=== PATIENT | female | born 1965 | race Caucasian/White ===

== ENCOUNTER 2018-08-16 22:17 | Inpatient (IN) ==
[2018-08-16] MEDS ORDERED: 0.9 % SODIUM CHLORIDE 1,000 ML IV ONE (22:37)
[2018-08-16] MEDS ORDERED: LEVOFLOXACIN 500 MG/100 ML BAG IV ONE (22:39)
[2018-08-16] MEDS ORDERED: VANCOMYCIN 1,000 MG in 0.9 % SODIUM CHLORIDE 250 ML IV ONE (22:39)
--- NOTE | 2018-08-16 22:45 | Emergency Department Note ---
SOB HPI - General Chief Complaint: Shortness of Breath/Dyspnea Stated Complaint: shortness of breath Time Seen by Provider: 08/16/18 22:25 Source: family Mode of arrival: ambulatory Limitations: no limitations - History of Present Illness 53-year-old female with a history of pneumonia comes in for severe hypoxia down to the 70s in triage. Apparently she has been having a cough congestion and trouble breathing since Sunday (5 days). She saw her PCP yesterday was put on minocycline but today she developed hypoxia and severe dyspnea. She does have a history of obstructive sleep apnea but does not wear CPAP. She also has inhalers but denies history of asthma. States normal bowel movement 2 days ago. Has not been eating much. Urinating okay but does have chronic kidney disease due to her type 2 diabetes. Denies chest pain or pressure; denies heart history of CO or failure - Related Data Home Medications Medication Instructions Recorded Confirmed Accu-Check Fastclix Lancets .ROUTE 07/10/17 03/07/18 Pen [place] 32G x 4MM Novafine .ROUTE 07/10/17 03/07/18 screw on albuterol sulfate HFA 90 2 puff INHALATION QID PRN g 07/10/17 08/16/18 mcg/actuation aerosol inhaler blood sugar diagnostic strips See Dose Instructions .ROUTE 07/10/17 03/07/18 .MEDSUPPLY #20 each blood-glucose meter See Dose Instructions .ROUTE 07/10/17 03/07/18 .MEDSUPPLY #1 each insulin degludec 100 unit SUB-Q QDAY ml 07/10/17 05/22/18 unit-liraglutide 3.6 mg/mL(3 mL) subcutaneous pen atorvastatin 20 mg tablet 20 mg PO QDAY 09/25/17 08/16/18 gabapentin 300 mg capsule 300 mg PO TID cap 02/18/18 08/16/18 Benzonatate [Tessalon] 100 mg PO TIDP PRN 08/16/18 08/16/18 Cholecalciferol (Vitamin D3) 2,000 unit PO ONCE 08/16/18 08/16/18 [Vitamin D] Minocycline [Minocin] 100 mg PO BID 08/16/18 08/16/18 Torsemide [Demadex] 40 mg PO ONCE 08/16/18 08/16/18 Previous Rx's Medication Instructions Recorded amlodipine 10 mg tablet 10 mg PO QDAY #90 tab 02/18/18 atenolol 25 mg tablet 25 mg PO QDAY #90 tab 02/18/18 Auto cpap #1 ea 04/17/18 furosemide 40 mg tablet 40 mg PO BID #120 tab 07/25/18 Allergies Allergy/AdvReac Type Severity Reaction Status Date / Time morphine Allergy Unknown Unknown Verified 05/22/18 09:29 Penicillins Allergy Unknown sunburn Verified 05/22/18 09:29 rash amoxicillin-pot clavulanate Allergy Unknown Unknown Uncoded 05/22/18 09:29 er clindamycin hcl Allergy Unknown Unknown Uncoded 05/22/18 09:29 Review of Systems All systems ED: reviewed and negative except as stated. Past Medical History - Past Medical History Attestation: Yes: The following information was validated with the patient. [facility] Narrative: Family History (Last Reviewed 03/07/18 @ 11:09 by Bubba Cortes MD) Mother Hypertension Diabetes Grandmother Cancer Grandfather Hypertension Diabetes Stroke Family/Other Diabetes Medical History (Last Reviewed 03/07/18 @ 11:09 by Bubba Cortes MD) Anemia in stage 3 chronic kidney disease (Chronic) Endometrial cancer (Chronic) Fatigue (Chronic) Dizziness (Chronic) Uterine cancer (Chronic) Erythema nodosum (Chronic) Adenocarcinoma of endometrium (Chronic) Sarcoidosis (Chronic) Heart murmur, aortic (Chronic) Peripheral neuropathy (Chronic) Retinal detachment (Chronic) Hyperlipidemia (Chronic) Cervical cancer (Chronic) Past Surgical History (Last Reviewed 03/07/18 @ 11:09 by Bubba Cortes MD) History of eye surgery (Chronic 11/29/15) History of eye surgery (Chronic ~04/2016) History of left cataract surgery (Chronic) History of tonsillectomy (Chronic) History of total abdominal hysterectomy (Chronic ~1997) Medical history: Reports: cancer (Endometrial cancer), DM (With neurologic complications), hyperlipidemia, hypertension, renal disease (With iron deficiency anemia and nephrotic syndrome), other (Sarcoidosis) Surgical history ED: Reports: cataract, hysterectomy, tonsillectomy, other (Retinal surgery) - Social History smoking status: Never smoker Physical Exam Overweight female some respiratory distress requiring nasal cannula oxygen now. Normocephalic atraumatic. Conjunctive are clear sclerae nonicteric. No nasal discharge but some audible congestion. Occasional productive cough. Oropharynx with dry buccal mucosa. Neck is supple without lymphadenopathy thyromegaly or carotid bruit. Heart is mildly tachycardic. Lungs with end expiratory wheezes rales and few scattered rhonchi in all zacarias. Wheezes are more apparent in the upper rales more in the lower. Abdomen is soft mildly diffusely tender. Trace pedal edema bilaterally. She is able to move herself around the bed with modes t assistance. She is alert oriented able to answer questions however appears fatigued Limitations: no limitations Course Vital Signs Temperature 97.2 F 08/16/18 22:18 Pulse Rate 78 08/16/18 22:18 Respiratory Rate 19 08/16/18 22:18 Blood Pressure 162/70 08/16/18 22:18 Pulse Oximetry (%) 96 08/16/18 22:18 Temperature 97.2 F 08/16/18 22:18 Pulse Rate 78 08/16/18 22:18 Respiratory Rate 19 08/16/18 22:18 Blood Pressure 162/70 08/16/18 22:18 Pulse Oximetry (%) 96 08/16/18 22:18 Shortness of Breath/Dyspnea - Lab Data Lab results reviewed: Yes I reviewed the patient's lab results. Result diagrams: 08/16/18 22:45 08/16/18 22:45 Lab Results 08/16/18 08/16/18 08/16/18 Range/Units 22:45 22:45 22:45 WBC 7.9 (4.5-11.0) K/mcL RBC 3.64 L (4.00-5.20) M/mcL Hgb 9.8 L (12.0-15.0) g/dL Hct 29.6 L (36.0-48.0) % POC Hct 28.0 L (36.0-48.0) % MCV 81.5 (80.0-100.0) fL MCH 27.0 (26.0-34.0) pg MCHC 33.1 (31.0-36.0) g/dL RDW 14.9 H (11.5-14.5) % Plt Count 167 (140-440) K/mcL MPV 10.6 H (7.4-10.4) fL Gran % 79.4 H (38.0-78.0) % Lymph % (Auto) 10.6 L (15.5-49.0) % [place] % (Auto) 9.4 (1.0-12.0) % Eos % (Auto) 0.2 (0.0-7.0) % Baso % (Auto) 0.4 (0.0-2.0) % Gran # 6.2 (1.8-8.0) K/mcL Lymph # (Auto) 0.8 L (1.5-4.8) K/mcL [place] # (Auto) 0.7 (0.1-0.9) K/mcL Eos # (Auto) 0 (0.0-0.7) K/mcL Baso # (Auto) 0 (0.0-0.3) K/mcL VBG Lactic Acid 1.0 (0.5-2.0) mmol/L POC Sodium 138 (133-145) mmol/L Sodium 137 (133-145) mmol/L POC Potassium 4.4 (3.3-5.1) mmol/L Potassium 4.4 (3.3-5.1) mmol/L POC Chloride 100 (96-108) mmol/L Chloride 99 (96-108) mmol/L Carbon Dioxide 26 (22-30) mmol/L POC Total CO2 27 (22-30) mmol/L Anion Gap 12.0 (8-16) POC BUN 43 H (6-20) mg/dl BUN 47 H (6-20) mg/dl Creatinine 1.9 H (0.6-1.1) mg/dl POC Creatinine 2.2 H (0.6-1.1) mg/dl GFR Calculation 29 Glucose 269 H (70-105) mg/dL POC Glucose 264 H (70-105) mg/dL Calcium 8.4 L (8.6-10.4) mg/dl POC WB Ioniz Calcium 1.08 L (1.16-1.32) mmol/L Magnesium 2.5 (1.6-2.5) mg/dL Total Bilirubin 0.2 (0.0-1.0) mg/dL AST 40 H (0-37) U/l ALT 33 (0-40) U/l Alkaline Phosphatase 96 (39-117) U/L NT-Pro-B Natriuret Pep 4503.0 H (0-125) pg/ml Total Protein 6.3 (5.9-8.4) gm/dL Albumin 3.0 L (3.2-5.2) gm/dL Globulin 3.3 (2.2-3.7) gm/dL Albumin/Globulin Ratio 0.9 L (1.0-2.3) Lipase 610 H (7-60) U/L Procalcitonin (<0.10) ng/mL 08/16/18 Range/Units 22:45 WBC (4.5-11.0) K/mcL RBC (4.00-5.20) M/mcL Hgb (12.0-15.0) g/dL Hct (36.0-48.0) % POC Hct (36.0-48.0) % MCV (80.0-100.0) fL MCH (26.0-34.0) pg MCHC (31.0-36.0) g/dL RDW (11.5-14.5) % Plt Count (140-440) K/mcL MPV (7.4-10.4) fL Gran % (38.0-78.0) % Lymph % (Auto) (15.5-49.0) % [place] % (Auto) (1.0-12.0) % Eos % (Auto) (0.0-7.0) % Baso % (Auto) (0.0-2.0) % Gran # (1.8-8.0) K/mcL Lymph # (Auto) (1.5-4.8) K/mcL [place] # (Auto) (0.1-0.9) K/mcL Eos # (Auto) (0.0-0.7) K/mcL Baso # (Auto) (0.0-0.3) K/mcL VBG Lactic Acid (0.5-2.0) mmol/L POC Sodium (133-145) mmol/L Sodium (133-145) mmol/L POC Potassium (3.3-5.1) mmol/L Potassium (3.3-5.1) mmol/L POC Chloride (96-108) mmol/L Chloride (96-108) mmol/L Carbon Dioxide (22-30) mmol/L POC Total CO2 (22-30) mmol/L Anion Gap (8-16) POC BUN (6-20) mg/dl BUN (6-20) mg/dl Creatinine (0.6-1.1) mg/dl POC Creatinine (0.6-1.1) mg/dl GFR Calculation Glucose (70-105) mg/dL POC Glucose (70-105) mg/dL Calcium (8.6-10.4) mg/dl POC WB Ioniz Calcium (1.16-1.32) mmol/L Magnesium (1.6-2.5) mg/dL Total Bilirubin (0.0-1.0) mg/dL AST (0-37) U/l ALT (0-40) U/l Alkaline Phosphatase (39-117) U/L NT-Pro-B Natriuret Pep (0-125) pg/ml Total Protein (5.9-8.4) gm/dL Albumin (3.2-5.2) gm/dL Globulin (2.2-3.7) gm/dL Albumin/Globulin Ratio (1.0-2.3) Lipase (7-60) U/L Procalcitonin 0.28 (<0.10) ng/mL ABG shows pH 7.42 PCO2 43 PO2 of 67 on 4 L - Radiology Data Radiology results reviewed: Yes I reviewed the patient's radiology results. - EKG Data EKG attestation: Yes I reviewed and interpreted this EKG. EKG results narrative: EKG shows sinus rhythm with T wave depression in T3 and T6 however this is nonspecific but may represent heart strain from pneumonia Disposition Pt seen by AERON[employer]ICAL DESIGN ENGINEER/PA only: No Clinical Impression: Anemia in stage 3 chronic kidney disease, CKD stage 3 due to type 2 diabetes me llitus Community acquired pneumonia Qualifiers: Laterality: unspecified laterality Qualified Code(s): J18.9 - Pneumonia, un specified organism Pancreatitis Qualifiers: Chronicity: acute Pancreatitis type: unspecified pancreatitis type Acute pancreatitis complication: no infection or necrosis Qualified Code(s): K85.90 - Acute pancreatitis without necrosis or infection, unspecified Summary: Very ill and possibly septic even. Hypoxic requiring nasal cannula oxygen will likely require admission. Start work-up with laboratory. She already had an x- ray done yesterday so we will do a CT scan of the abdomen pelvis and chest-we will check the abdomen and pelvis due to her having belly pain as well as nausea and vomiting-this may be the cause of her aspiration pneumonia seen on yesterday's x-ray. Blood cultures are done. Start Levaquin and Vanco- she is allergic to penicillin DuoNeb breathing treatment seems to have helped but she is still requiring oxygen CT scan chest abdomen pelvis without contrast shows small right pleural effusion and confirmed pneumonia. Laboratory shows evidence of mild pancreatitis. Patient denies significant alcohol usage Creatinine is slightly up at 1.9 but clinically her appearance is equivocal in terms of volume status. She is afebrile and blood pressure is stable. She has some trace edema to her feet but her mucous membranes are dry. Her BNP is elevated but it is unclear what her baseline is. Urine microscopic is pending. We will continue low volume IV fluids and reassess in terms of volume status I discussed the situation with Dr. Suarez, our hospitalist, who agreed to accept the patient for further care and evaluation in the hospital. I will write holding orders Disposition: Xfer As Inpt ([facility]) Condition: Fair Referrals: Luis Barnes MD [Primary Care Provider] -
[2018-08-16 23:35] LABS: Basophils # (Auto) 0 K/mcL (0.0-0.3); Basophils % (Auto) 0.4 % (0.0-2.0); Eosinophils # (Auto) 0 K/mcL (0.0-0.7); Eosinophils % (Auto) 0.2 % (0.0-7.0); Granulocytes % (Auto) 79.4 % (38.0-78.0); Lymphocytes # (Auto) 0.8 K/mcL (1.5-4.8); Lymphocytes % (Auto) 10.6 % (15.5-49.0); Mean Cell Volume 81.5 fL (80.0-100.0); Mean Corpuscular HGB Conc 33.1 g/dL (31.0-36.0); Monocytes # (Auto) 0.7 K/mcL (0.1-0.9); Monocytes % (Auto) 9.4 % (1.0-12.0); Platelet Count 167 K/mcL (140-440); RBC 3.64 M/mcL (4.00-5.20); Red Cell Distribution Width 14.9 % (11.5-14.5)
[2018-08-16 23:56] LABS: ALT/SGPT 33 U/l (0-40); Albumin/Globulin Ratio 0.9 (1.0-2.3); Alkaline Phosphatase 96 U/L (39-117); Blood Urea Nitrogen 47 mg/dl (6-20)
[2018-08-17 00:01] LABS: Lipase 610 U/L (7-60)
[2018-08-17 02:20] LABS: Appearance,Urine CLOUDY; Bacteria,Urine 0 /hpf (0); Bilirubin,Urine NEG (NEG); Color,Urine YELLOW; Glucose,Urine (UA) 150 mg/dL (NEG); Leukocyte Esterase,Urine 250 /uL (NEG); Mucus,Urine FEW /hpf (0); Protein,Urine >=500 mg/dL (NEG); Specific Gravity,Urine 1.019 (1.000-1.035); Urine Amorphous Crystals FEW /hpf (0); Urine Blood 0.2 mg/dL (<0.03); Urine Hyaline Cast 25 /lpf (0-2); Urine RBC 9 /hpf (0-1); Urine Squamous Epithelial Cell 3 /hpf (0-4); Urine Transitional Epi Cells 1 /hpf (0-2); Urine WBC 74 /hpf (0-4); Urobilinogen,Urine NEG (NEG)
[2018-08-17] MEDS ORDERED: NALOXONE HCL 0.4 MG/ML VIAL IV PRN ×2 (02:24→11:37)
[2018-08-17] MEDS ORDERED: ACETAMINOPHEN 325 MG TABLET PO PRN ×2 (02:24→11:37)
[2018-08-17] MEDS ORDERED: ONDANSETRON 4 MG/2 ML VIAL IV PRN ×2 (02:24→11:37)
[2018-08-17] MEDS ORDERED: HYDROcodone/APAP 5/325MG TABLET PO PRN (02:24)
[2018-08-17] MEDS ORDERED: 0.9 % SODIUM CHLORIDE 1,000 ML IV SCH ×2 (02:30→11:37)
--- NOTE | 2018-08-17 05:14 | Cat Scan Report ---
CLINICAL INFORMATION: Abdominal pain and vomiting COMPARISON: None. TECHNIQUE: Enteric contrast was utilized. 80 cc of Isovue-300 were injected intravenously, and 50 seconds later 2.5 mm helical slices were obtained from the lung apices through the subtrochanteric regions of the femurs. Following reconstruction, 2.5 mm sagittal, coronal and axial reformatted images were processed and reviewed at multiple windows and levels. 7 mm MIP reconstructions were obtained through the lungs to optimize nodule detection.The exam was performed using radiation dose optimization techniques including, but not limited to, automated exposure control, adjustment of the mA and/or kV according to patient size and use of iterative reconstruction technique. FINDINGS: Pulmonary parenchymal windows show moderate sized nodular alveolar infiltrates generally in a peribronchovascular distribution throughout most of the right upper middle and lower lobes. A moderate consolidated infiltrate seen in the posterior segment left upper lobe with a moderate nodular alveolar infiltrates in a peribronchovasculature distribution in the left lower lobe. Small right pleural effusion noted. Mediastinal windows the noncontrasted central pulmonary artery is enlarged: The main pulmonary diameter 4.2 cm. The noncontrast thoracic aorta is normal in diameter contour. A few borderline enlarged lymph nodes noted in both aguila and lower mediastinal regions. The heart is grossly normal in size with only minimal scattered calcific plaque in the coronary arteries. Esophagus is normal. Thyroid is unremarkable. Abdominal images show the noncontrasted gallbladder contains a pharyngian cap - congenital variant. The gallbladder is otherwise normal. Intrahepatic and common bile ducts are normal caliber: CBD is 5 mm. The noncontrasted liver, left kidney, adrenal glands, spleen, pancreas and aorta are unremarkable. There is a 2.5 cm well-circumscribed fat-containing lesion in the inferior pole of the right kidney compatible with a benign angiomyolipoma. Perinephric stranding is noted in both kidneys. There is very commonly seen and almost certainly insignificant There is no free air or adenopathy. A small amount of simple free fluid noted in the true pelvis. Hysterectomy/oophorectomy changes noted. Sigmoid diverticuli noted, but no evidence of diverticulitis. The remainder of the colon, appendix, small bowel and stomach are normal. Bone windows show no osseous abnormality throughout the chest abdomen or pelvis. IMPRESSION: 1. Diffuse infiltrates generally in a peribronchiovascular distribution throughout both lungs. Acute causes include aspiration, ARDS and infection. Small right pleural effusion. 2. Enlargement of the central pulmonary arteries compatible with pulmonary hypertension. 3. 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 Small amount of simple free fluid in the true pelvis - etiology uncertain Interpreted and Authenticated by: Janusz Bellamy 08/17/18
--- NOTE | 2018-08-17 07:34 | Internal Med History&Physical ---
Medical - H&P: HPI Patient information: Note initiated : 08/17/18 at 7:31 am Service Date, if different from initiated Date: [] Patient: Ashlie Reagan 53 y/o F admitted on 08/17/18 for shortness of breath. Chief Complaint: [] History of present illness: Ms. Reagan is a 53 year old F who presents the ED with shortness of breath and found to have saturation 79% on room air. Previous day diagnosed with pneumonia. Cough which occasionally is productive of dark yellow sputum. She is been I am unable to get anything up for past couple days. She started developing shortness of breath on Sunday. She is also had weight gain with lower extreme swelling over the past month. She went to see Dr. Barnes for routine visit and during the visit he obtained a chest x-ray found her to have pneumonia and prescribed minocycline. She took a dose that that night and the next morning however she continued to worsen with her shortness of breath and so short of breath that she said to come to the ED. she is also complained of chills. Patient states that she had an episode of nausea vomiting on evening and after that had abdominal pain which describes as a sharp pain right upper quadrant. She does complain of some vague back pain since about that time. She has an appetite and total tolerating clear liquid diet. In the ED she had a CT chest abdomen pelvis which was showed kev-bronchial infiltrates with differential aspiration margins or infection. Has reported food/drinking on the wrong pipe on occasion but not particularly as of late. She denies any history of heart failure or heart conditions. No history of asthma or COPD. Review of Systems: Pertinent positives as above. Denies headache/fever//chest pain/diarrhea. Remaining 10 point review of systems reviewed negative Medical - H&P: PMH Medical history: Medical History (Last Reviewed 03/07/18 @ 11:09 by Bubba Cortes MD) Anemia in stage 3 chronic kidney disease (Chronic) Endometrial cancer (Chronic) Fatigue (Chronic) Dizziness (Chronic) Uterine cancer (Chronic) Erythema nodosum (Chronic) Adenocarcinoma of endometrium (Chronic) Sarcoidosis (Chronic) Heart murmur, aortic (Chronic) Peripheral neuropathy (Chronic) Retinal detachment (Chronic) Hyperlipidemia (Chronic) Cervical cancer (Chronic) Past Surgical History (Last Reviewed 03/07/18 @ 11:09 by Bubba Cortes MD) History of eye surgery (Chronic 11/29/15) History of eye surgery (Chronic ~04/2016) History of left cataract surgery (Chronic) History of tonsillectomy (Chronic) History of total abdominal hysterectomy (Chronic ~1997) Family History (Last Reviewed 03/07/18 @ 11:09 by Bubba Cortes MD) Mother Hypertension Diabetes Grandmother Cancer Grandfather Hypertension Diabetes Stroke Family/Other Diabetes Social History (Last Updated 05/22/18 @ 10:12 by Андрей Jordan MD) -Denies smoking Denies alcohol use Lives at home family Medical - H&P: Meds Home Medications Medication Instructions Recorded Confirmed Type Accu-Check Fastclix Lancets 1 each .ROUTE PRN PRN 07/10/17 08/17/18 History Pen [place] 32G x 4MM Novafine 1 each .ROUTE .MEDSUPPLY 07/10/17 08/17/18 History screw on albuterol sulfate HFA 90 2 puff INHALATION QID PRN g 07/10/17 08/16/18 History mcg/actuation aerosol inhaler blood sugar diagnostic strips See Dose Instructions .MEDSUPPLY 07/10/17 08/17/18 History #20 each blood-glucose meter See Dose Instructions .ROUTE 07/10/17 08/17/18 History .MEDSUPPLY #1 each insulin degludec 100 20 unit SUB-Q QDAY ml 07/10/17 08/17/18 History unit-liraglutide 3.6 mg/mL(3 mL) subcutaneous pen atorvastatin 20 mg tablet 20 mg PO QDAY 09/25/17 08/16/18 History amlodipine 10 mg tablet 10 mg PO QDAY #90 tab 02/18/18 08/16/18 Rx atenolol 25 mg tablet 25 mg PO QDAY #90 tab 02/18/18 08/16/18 Rx gabapentin 300 mg capsule 300 mg PO TID cap 02/18/18 08/16/18 History Benzonatate [Tessalon] 100 mg PO TIDP PRN 08/16/18 08/16/18 History Cholecalciferol (Vitamin D3) 2,000 unit PO DAILY 08/16/18 08/17/18 History [Vitamin D] Minocycline [Minocin] 100 mg PO BID 08/16/18 08/16/18 History Auto cpap 1 each .ROUTE .MEDSUPPLY 08/17/18 08/17/18 History Furosemide [Lasix] 40 mg PO TID 08/17/18 08/17/18 History Allergies Allergy/AdvReac Type Severity Reaction Status Date / Time morphine Allergy Unknown Unknown Verified 05/22/18 09:29 Penicillins Allergy Unknown sunburn Verified 05/22/18 09:29 rash amoxicillin-pot clavulanate Allergy Unknown Unknown Uncoded 05/22/18 09:29 er clindamycin hcl Allergy Unknown Unknown Uncoded 05/22/18 09:29 Medical - H&P: Exam - Constitutional Vitals: Temp Pulse Resp BP Pulse Ox 98.1 F 72 16 129/71 96 08/17/18 07:09 08/17/18 02:53 08/17/18 07:09 08/17/18 07:09 08/17/18 07:09 Exam: General: Alert, Awake, No acute Distress Eyes/N/T: EOMI, PEERL, DMM Head/Neck: neck supple, normocephalic atraumatic CV: RRR, No murmurs, normal s1/s2 Pulm: Bilateral rhonchi and occasional wheeze Abd: soft, no real tender points, +BS x4 Ext: no clubbing/cyanosis, 2+ b/l LE/edema Neuro: Alert, no focal deficits, moves all extremities, CN 2-12 grossly intact, symmetrical strength b/l upper/lower, sensations intact b/l upper/lower Skin: warm/dry Medical - H&P: Reslt - Labs CBC & Chem 7: 08/16/18 22:45 08/16/18 22:45 Labs: Short CBC 08/16/18 Range/Units 22:45 WBC 7.9 (4.5-11.0) K/mcL Hgb 9.8 L (12.0-15.0) g/dL Hct 29.6 L (36.0-48.0) % Plt Count 167 (140-440) K/mcL BMP 08/16/18 22:45 Sodium 137 Potassium 4.4 Chloride 99 Carbon Dioxide 26 BUN 47 H Creatinine 1.9 H Glucose 269 H Calcium 8.4 L Liver Function 08/16/18 Range/Units 22:45 Total Bilirubin 0.2 (0.0-1.0) mg/dL AST 40 H (0-37) U/l ALT 33 (0-40) U/l Alkaline Phosphatase 96 (39-117) U/L Albumin 3.0 L (3.2-5.2) gm/dL Urine 08/17/18 Range/Units 00:55 Urine Color Yellow Urine Appearance Cloudy Urine pH 5.0 (5.0-9.0) Ur Specific [place] 1.019 (1.000-1.035) Urine Protein >=500 A (NEG) mg/dL Urine Glucose (UA) 150 A (NEG) mg/dL - Impressions CT chest abdomen pelvis without contrast showing peribronchial infiltrates differential of aspiration arms infection. No mention of pancreatitis although this is without contrast. Medical - H&P: A/P - Narrative A/P Narrative: A: *PNA: -PCT 0.28 *Acute hypoxic respiratory failure: 2/2 above *Acute on chronic peripheral edema *Acute pancreatitis: low renetta's *UTI: *EMELIA (not on home CPAP b/c of cost): *??AMANDA on CKD III: follow with dr jordan *Anemia of CD: *HTN/HLD *DM w/neuropathy: *History of sarcoidosis *morbid obesity: * P: -IV Abx -trend PCT -pending BC/SC -IS/Acapella -wean O2 -f/u lipase -echo -resp panel, mcyo/strep -GB u/s, check trigs -leg wraps -clear diet - -ppx: lovenox Medical - H&P: Qual - Stroke Symptom Onset Unknown: No - VTE Deep Vein Thrombosis/Pulmonary Embolism Present on Admission: No
[2018-08-17 08:27] LABS: Band Neutrophils % 11 % (0-10); Lymphocytes % 10 % (15-49); Monocytes % (Manual) 7 % (1-12); Platelet Estimate NORMAL (NORMAL); RBC Morphology NORMAL (NORMAL); Segmented Neutrophils % 72 % (38-78)
[2018-08-17] MEDS ORDERED: PROCHLORPERAZINE 10 MG/2 ML VIAL IV PRN (11:37)
[2018-08-17] MEDS ORDERED: cefTRIAXone 1 GM in DEXTROSE 5% IN WATER 50 ML IV SCH (11:37)
[2018-08-17] MEDS ORDERED: ALBUTEROL SULFATE 1 PUFF INHALER INH PRN (11:37)
[2018-08-17] MEDS ORDERED: BENZONATATE 100 MG CAPSULE PO PRN (11:37)
[2018-08-17] MEDS ORDERED: [UNRECOGNIZED DRUG - OTHER] SCH (11:37)
[2018-08-17] MEDS: cefTRIAXone 1 GM VIAL IV SCH (12:27)
[2018-08-17] MEDS: AZITHROMYCIN 500 MG in DEXTROSE 5% IN WATER 250 ML IV SCH (12:33)
[2018-08-17] MEDS: ENOXAPARIN 40 MG/0.4 ML SYRINGE SQ SCH (13:08)
[2018-08-17 13:22] LABS: HDL Cholesterol 29 mg/dl (>40); LDL Cholesterol,Calculated 113 mg/dl (SEE CHART)
[2018-08-17] MEDS: 0.9 % SODIUM CHLORIDE 10 ML SYRINGE IV SCH ×2 (14:06→20:32)
[2018-08-17] MEDS: metroNIDAZOLE 500 MG TABLET PO SCH ×2 (14:55→21:25)
[2018-08-17] MEDS: GABAPENTIN 300 MG CAPSULE PO SCH ×2 (14:55→21:25)
[2018-08-17] MEDS: HYDROcodone/APAP 5/325MG TABLET PO PRN (15:01)
--- NOTE | 2018-08-17 16:28 | Ultrasound Report ---
CLINICAL INFORMATION: pancreatitis COMPARISON: None. FINDINGS: Liver is mildly enlarged with a vertical dimension of 18 cm mid clavicular line. Echotexture is heterogeneous suggesting hepatocellular disease. No focal hepatic lesions. There is a 6 mm stone within the gallbladder fundus. Gallbladder wall is normal thickness - 2 mm. Common bile is normal at 5 mm. Pancreas unremarkable. No free fluid IMPRESSION: Solitary 6 mm stone in the gallbladder. Gallbladder and bile ducts are, otherwise, normal Moderate hepatomegaly with inhomogeneous echotexture compatible with diffuse hepatocellular process Interpreted and Authenticated by: Janusz Bellamy 08/17/18
[2018-08-17] MEDS ORDERED: SENNOSIDES 1 TABLET PO PRN (21:00)
[2018-08-18] MEDS: metroNIDAZOLE 500 MG TABLET PO SCH ×3 (05:42→21:12)
[2018-08-18] MEDS: 0.9 % SODIUM CHLORIDE 10 ML SYRINGE IV SCH ×3 (05:45→21:20)
[2018-08-18 05:48] LABS: ALT/SGPT 30 U/l (0-40); Albumin 2.7 gm/dL (3.2-5.2); Albumin/Globulin Ratio 0.9 (1.0-2.3); Alkaline Phosphatase 81 U/L (39-117); Bilirubin,Direct < 0.2 mg/dL (0.0-0.3); Blood Urea Nitrogen 40 mg/dl (6-20); Gamma Glutamyl Transpeptidase 20 U/L (5-36); Uric Acid 8.4 mg/dL (2.5-8.0)
[2018-08-18 05:53] LABS: Lipase 774 U/L (7-60)
[2018-08-18 05:55] LABS: Basophils # (Auto) 0 K/mcL (0.0-0.3); Basophils % (Auto) 0.3 % (0.0-2.0); Eosinophils # (Auto) 0.1 K/mcL (0.0-0.7); Eosinophils % (Auto) 2.3 % (0.0-7.0); Granulocytes % (Auto) 66.5 % (38.0-78.0); Lymphocytes # (Auto) 0.8 K/mcL (1.5-4.8); Lymphocytes % (Auto) 19.3 % (15.5-49.0); Mean Cell Volume 82.1 fL (80.0-100.0); Mean Corpuscular HGB Conc 32.7 g/dL (31.0-36.0); Monocytes # (Auto) 0.5 K/mcL (0.1-0.9); Monocytes % (Auto) 11.6 % (1.0-12.0); Platelet Count 142 K/mcL (140-440); RBC 3.22 M/mcL (4.00-5.20); Red Cell Distribution Width 15.5 % (11.5-14.5)
--- NOTE | 2018-08-18 07:28 | Internal Med Progress Note ---
Medical - PN: Subj Patient information: Note initiated : 08/18/18 at 7:18 am Service Date, if different from initiated Date: [] Patient: Ashlie Reagan 53 y/o F admitted on 08/17/18 for shortness of breath. Chief Complaint: [] Interval history: Ms. Reagan is a 53 year old F who presents the ED with shortness of breath and found to have saturation 79% on room air. Previous day diagnosed with pneumonia. Cough which occasionally is productive of dark yellow sputum. She is been I am unable to get anything up for past couple days. She started developing shortness of breath on Sunday. She is also had weight gain with lower extreme swelling over the past month. She went to see Dr. Barnes for routine visit and during the visit he obtained a chest x-ray found her to have pneumonia and prescribed minocycline. She took a dose that that night and the next morning however she continued to worsen with her shortness of breath and so short of breath that she said to come to the ED. she is also complained of chills. Patient states that she had an episode of nausea vomiting on evening and after that had abdominal pain which describes as a sharp pain right upper quadrant. She does complain of some vague back pain since about that time. She has an appetite and total tolerating clear liquid diet. In the ED she had a CT chest abdomen pelvis which was showed kev-bronchial infiltrates with differential aspiration margins or infection. Has reported food/drinking on the wrong pipe on occasion but not particularly as of late. She denies any history of heart failure or heart conditions. No history of asthma or COPD. 08/18 Still slept okay. Coughing but unable to produce any sputum. Feels her shortness of breath is him proving from day-to-day. Currently on 3 L with sats mid 90s below her oxygen. Continue pulmonary toilet PRN nebulizers. Awaiting echo results. Continue wean down oxygen. Denies abdominal pain. No bleeding. Tolerating clear liquids. Will advance. Review of Systems: denies headache/fever/chills/nausea/vomiting/chest pain/diarrhea. Otherwise see above. - Constitutional Vitals: Vital Signs Temp Pulse Resp BP Pulse Ox 98.6 F 70 20 169/83 92 08/18/18 03:40 08/18/18 03:40 08/18/18 03:40 08/18/18 03:40 08/18/18 03:40 Period Temp Pulse Resp BP Sys/[place] Pulse Ox Last 24 Hr 97.4 F-98.7 F 69-70 20-24 137-169/67-86 91-98 Intake and Output 08/17/18 08/18/18 08/18/18 21:59 05:59 13:59 Intake Total 2989 747 0684 Output Total 350 Balance 2132 284 2942 Weight 114.759 kg Intake & Output: Intake & Output 08/17/18 08/18/18 08/18/18 21:59 05:59 13:59 Intake Total 1513 955 7180 Output Total 350 Balance 6163 520 0255 Weight 114.759 kg Intake: IV 1000 1000 Oral 640 595 Output: Void Amount 350 Other: Urine Appearance Clear Urine Color Dark Yellow # Voids 1 Exam: General: Alert, Awake, No acute Distress Eyes/N/T: EOMI, Head/Neck: neck supple, CV: RRR, No murmurs, Pulm: Decreased bilateral rhonchi, minimal wheezing today Abd: soft, abdomen nontender, +BS x4 Ext: no clubbing/cyanosis, 1-2+ b/l LE/edema Neuro: Alert, no focal deficits, moves all extremities, Skin: warm/dry Medical - PN: Obj Da - Labs CBC & Chem 7: 08/18/18 04:20 08/18/18 04:20 Labs: Abnormal Lab Results 08/18/18 08/18/18 08/17/18 04:20 04:20 22:45 WBC 4.1 L RBC 3.22 L Hgb 8.6 L Hct 26.5 L POC Hct RDW 15.5 H MPV Gran % Lymph % (Auto) Lymph # (Auto) 0.8 L Band Neutrophils % Lymphocytes % POC BUN BUN 40 H Creatinine 1.5 H POC Creatinine Glucose 145 H POC Glucose Uric Acid 8.4 H Calcium 8.0 L POC WB Ioniz Calcium AST Lactate Dehydrogenase 344 H NT-Pro-B Natriuret Pep 1325.0 H Total Protein 5.7 L Albumin 2.7 L Albumin/Globulin Ratio 0.9 L Triglycerides 214 H LDL Cholesterol, Calc Non-HDL Cholesterol HDL Cholesterol Amylase 151 H Lipase 774 H Urine Protein Urine Glucose (UA) Urine Occult Blood Ur Leukocyte Esterase Urine RBC Urine WBC Amorphous Crystals Hyaline Casts 08/17/18 08/17/18 08/17/18 11:53 11:53 02:30 WBC RBC Hgb Hct POC Hct RDW MPV Gran % Lymph % (Auto) Lymph # (Auto) Band Neutrophils % Lymphocytes % POC BUN BUN Creatinine POC Creatinine Glucose POC Glucose Uric Acid Calcium POC WB Ioniz Calcium AST Lactate Dehydrogenase 575 H NT-Pro-B Natriuret Pep Total Protein Albumin Albumin/Globulin Ratio Triglycerides 208 H LDL Cholesterol, Calc 113 H Non-HDL Cholesterol 154 H HDL Cholesterol 29 L Amylase Lipase 959 H Urine Protein Urine Glucose (UA) Urine Occult Blood Ur Leukocyte Esterase Urine RBC Urine WBC Amorphous Crystals Hyaline Casts 08/17/18 08/16/18 08/16/18 00:55 22:45 22:45 WBC RBC Hgb Hct POC Hct 28.0 L RDW MPV Gran % Lymph % (Auto) Lymph # (Auto) Band Neutrophils % 11 H Lymphocytes % 10 L POC BUN 43 H BUN 47 H Creatinine 1.9 H POC Creatinine 2.2 H Glucose 269 H POC Glucose 264 H Uric Acid Calcium 8.4 L POC WB Ioniz Calcium 1.08 L AST 40 H Lactate Dehydrogenase NT-Pro-B Natriuret Pep 4503.0 H Total Protein Albumin 3.0 L Albumin/Globulin Ratio 0.9 L Triglycerides LDL Cholesterol, Calc Non-HDL Cholesterol HDL Cholesterol Amylase Lipase 610 H Urine Protein >=500 A Urine Glucose (UA) 150 A Urine Occult Blood 0.2 A Ur Leukocyte Esterase 250 A Urine RBC 9 H Urine WBC 74 H Amorphous Crystals Few A Hyaline Casts 25 H 08/16/18 22:45 WBC RBC 3.64 L Hgb 9.8 L Hct 29.6 L POC Hct RDW 14.9 H MPV 10.6 H Gran % 79.4 H Lymph % (Auto) 10.6 L Lymph # (Auto) 0.8 L Band Neutrophils % Lymphocytes % POC BUN BUN Creatinine POC Creatinine Glucose POC Glucose Uric Acid Calcium POC WB Ioniz Calcium AST Lactate Dehydrogenase NT-Pro-B Natriuret Pep Total Protein Albumin Albumin/Globulin Ratio Triglycerides LDL Cholesterol, Calc Non-HDL Cholesterol HDL Cholesterol Amylase Lipase Urine Protein Urine Glucose (UA) Urine Occult Blood Ur Leukocyte Esterase Urine RBC Urine WBC Amorphous Crystals Hyaline Casts Meds: Medications Acetaminophen (Tylenol) 650 mg PO Q6HP PRN PRN Reason: PAIN/FEVER > 101 Hydrocodone Bitart/Acetaminophen ([place] 5/325mg) 1 tab PO Q4HP PRN PRN Reason: PAIN LEVEL 3-6 Last Admin: 08/17/18 15:01 Dose: 1 tab Documented by: Albuterol Sulfate (Ventolin) 2 puff INH QIDP PRN PRN Reason: Shortness Of Breath Amlodipine Besylate (Norvasc) 10 mg PO QDAY [facility] Atenolol (Tenormin) 25 mg PO DAILY [facility] Atorvastatin Calcium (Lipitor) 20 mg PO QDAY [facility] Benzonatate (Tessalon) 100 mg PO TIDP PRN PRN Reason: Cough Ceftriaxone Sodium (Rocephin) 1 gm IV DAILY [facility] Last Admin: 08/17/18 12:27 Dose: 1 gm Documented by: Enoxaparin Sodium (Lovenox) 40 mg SQ DAILY [facility] Last Admin: 08/17/18 13:08 Dose: 40 mg Documented by: Gabapentin (Neurontin) 300 mg PO BID [facility] Last Admin: 08/17/18 21:25 Dose: 300 mg Documented by: Azithromycin 500 mg/ Dextrose 250 mls @ 250 mls/hr IV DAILY [facility]; Protocol Stop: 08/19/18 09:59 Last Infusion: 08/17/18 13:35 Dose: Infused Documented by: Metronidazole (Flagyl) 500 mg PO Q8 [facility]; Protocol Last Admin: 08/18/18 05:42 Dose: 500 mg Documented by: Naloxone HCl (Narcan) 0.1 mg IV Q2MIN PRN PRN Reason: Opiate Reversal Ondansetron HCl (Zofran) 4 mg IV Q4HP PRN PRN Reason: Nausea And Vomiting Insulin Degludec/Liraglutide [ Xultophy 100 Unit-3. 6 Mg/Ml] Pen 1 dose SUB-Q DAILY [facility] Prochlorperazine (Compazine) 5 mg IV Q4HP PRN PRN Reason: Nausea And Vomiting Senna (Senokot) 2 tab PO HS PRN PRN Reason: Constipation Sodium Chloride (Saline Flush) 10 ml IV Q8 [facility] Last Admin: 08/18/18 05:45 Dose: Not Given Documented by: Medical - PN: A/P - Time Spent With Patient Total time spent is greater than 50% in coordination of care (as documented) at patient's floor/unit and/or counseling patient: - Narrative A/P Narrative: A: *PNA: -PCT 0.13<0.28; myco/strep neg *Metapneumovirus respiratory infection: *Acute hypoxic respiratory failure: 2/2 above -on 3L NC sats mid 90's *Acute on chronic peripheral edema: -echo *?Acute pancreatitis: low renetta's, mild abd pain. suspect gallstone related -GB w/o itis, 6mm stone present, eventually d/w surgeon when pulm/gu infection cleared *UTI: *EMELIA (not on home CPAP b/c of cost): *AMANDA on CKD III: follow with dr jordan -1.5<1.9 *Anemia of CD: *HTN/HLD *DM w/neuropathy: *History of sarcoidosis *morbid obesity: * P: -IV Abx -pending BC/SC -IS/Acapella -wean O2 -echo -leg wraps -clear diet, advance to full -ambulation -ppx: [employer] Medical - PN: Qual - Stroke Symptom Onset Unknown: No - VTE Deep Vein Thrombosis/Pulmonary Embolism Present on Admission: No
[2018-08-18 08:08] LABS: Eosinophils % (Manual) 1 % (0-7); Lymphocytes % 28 % (15-49); Monocytes % (Manual) 5 % (1-12); Platelet Estimate NORMAL (NORMAL); RBC Morphology NORMAL (NORMAL); Segmented Neutrophils % 66 % (38-78)
[2018-08-18] MEDS: GABAPENTIN 300 MG CAPSULE PO SCH ×2 (08:42→21:12)
[2018-08-18] MEDS: AZITHROMYCIN 500 MG in DEXTROSE 5% IN WATER 250 ML IV SCH (08:42)
[2018-08-18] MEDS: amLODIPine 10 MG TABLET PO SCH (08:42)
[2018-08-18] MEDS: ATENOLOL 50 MG TABLET PO SCH (08:42)
[2018-08-18] MEDS: ATORVASTATIN 20 MG TABLET PO SCH (08:42)
[2018-08-18] MEDS: cefTRIAXone 1 GM VIAL IV SCH (08:42)
[2018-08-18] MEDS: LIRAGLUTIDE SUB-Q SCH (08:43)
[2018-08-18] MEDS: INSULIN DEGLUDEC SUB-Q SCH (08:43)
[2018-08-18] MEDS: ENOXAPARIN 40 MG/0.4 ML SYRINGE SQ SCH (08:43)
[2018-08-18] MEDS ORDERED: guaiFENesin 600 MG TAB.SR.12H PO ONE (08:55)
[2018-08-18] MEDS: IPRATROPIUM/ALBUTEROL 3 ML AMPUL.NEB NEB PRN ×2 (09:06→16:54)
--- NOTE | 2018-08-18 12:51 | XRay Report ---
CLINICAL INFORMATION: Follow-up infiltrates COMPARISON: 08/15/2018 FINDINGS: Since the chest x-ray three days prior, bilateral infiltrates have worsened considerably. There is now a large patchy infiltrate in the right mid and lower lung. Moderate left midlung infiltrate show slight worsening with spread into the left lower lung. No definite effusion. Cardiomediastinal silhouette and pulmonary vessels are normal. IMPRESSION: Worsening bilateral infiltrates, particularly in the right lung, since comparison x-ray three days ago. Consider aspiration, ARDS or infection Interpreted and Authenticated by: Janusz Bellamy 08/18/18
[2018-08-18] MEDS ORDERED: FUROSEMIDE 40 MG/4 ML VIAL IV ONE (13:28)
[2018-08-18] MEDS ORDERED: ALBUMIN HUMAN 12.5 GM/50 ML BAG IV ONE (13:28)
[2018-08-18] MEDS ORDERED: guaiFENesin 600 MG TAB.SR.12H PO SCH (21:00)
[2018-08-18] MEDS: HYDROcodone/APAP 5/325MG TABLET PO PRN (21:46)
[2018-08-19 05:48] LABS: Basophils # (Auto) 0 K/mcL (0.0-0.3); Basophils % (Auto) 0.5 % (0.0-2.0); Eosinophils # (Auto) 0.1 K/mcL (0.0-0.7); Eosinophils % (Auto) 2.1 % (0.0-7.0); Granulocytes % (Auto) 53.9 % (38.0-78.0); Lymphocytes # (Auto) 1.1 K/mcL (1.5-4.8); Lymphocytes % (Auto) 28.2 % (15.5-49.0); Mean Cell Volume 82.4 fL (80.0-100.0); Mean Corpuscular HGB Conc 31.9 g/dL (31.0-36.0); Monocytes # (Auto) 0.6 K/mcL (0.1-0.9); Monocytes % (Auto) 15.3 % (1.0-12.0); Platelet Count 139 K/mcL (140-440); RBC 3.13 M/mcL (4.00-5.20); Red Cell Distribution Width 15.1 % (11.5-14.5)
[2018-08-19 06:02] LABS: Blood Urea Nitrogen 34 mg/dl (6-20)
[2018-08-19] MEDS: 0.9 % SODIUM CHLORIDE 10 ML SYRINGE IV SCH ×3 (06:53→23:35)
[2018-08-19] MEDS ORDERED: predniSONE 20 MG TABLET PO ONE (07:03)
--- NOTE | 2018-08-19 07:07 | Internal Med Progress Note ---
Medical - PN: Subj Patient information: Note initiated : 08/19/18 at 7:01 am Service Date, if different from initiated Date: [] Patient: Ashlie Reagan 53 y/o F admitted on 08/17/18 for Shortness of breath. Chief Complaint: [] Interval history: Ms. Reagan is a 53 year old F who presents the ED with shortness of breath and found to have saturation 79% on room air. Previous day diagnosed with pneumonia. Cough which occasionally is productive of dark yellow sputum. She is been I am unable to get anything up for past couple days. She started developing shortness of breath on Sunday. She is also had weight gain with lower extreme swelling over the past month. She went to see Dr. Barnes for routine visit and during the visit he obtained a chest x-ray found her to have pneumonia and prescribed minocycline. She took a dose that that night and the next morning however she continued to worsen with her shortness of breath and so short of breath that she said to come to the ED. she is also complained of chills. Patient states that she had an episode of nausea vomiting on evening and after that had abdominal pain which describes as a sharp pain right upper quadrant. She does complain of some vague back pain since about that time. She has an appetite and total tolerating clear liquid diet. In the ED she had a CT chest abdomen pelvis which was showed kev-bronchial infiltrates with differential aspiration margins or infection. Has reported food/drinking on the wrong pipe on occasion but not particularly as of late. She denies any history of heart failure or heart conditions. No history of asthma or COPD. 08/18 Still slept okay. Coughing but unable to produce any sputum. Feels her shortness of breath is him proving from day-to-day. Currently on 3 L with sats mid 90s below her oxygen. Continue pulmonary toilet PRN nebulizers. Awaiting echo results. Continue wean down oxygen. Denies abdominal pain. No bleeding. Tolerating clear liquids. Will advance. 08/19 Has continued cough but unable to produce sputum. Feels shortness of breath similar yesterday. Has not gotten up and walked around much. Told her we need to get her moving 3 times a day walk around. Continue using IS/Acapella. Review of Systems: denies headache/fever/chills/nausea/vomiting/chest pain/diarrhea. Otherwise see above. - Constitutional Vitals: Vital Signs Temp Pulse Resp BP Pulse Ox 97.6 F 69 14 144/76 95 08/19/18 04:00 08/19/18 04:00 08/19/18 04:00 08/19/18 04:00 08/19/18 04:00 Period Temp Pulse Resp BP Sys/[place] Pulse Ox Last 24 Hr 97.6 F-98.8 F 67-79 12-24 129-152/44-76 92-96 Intake and Output 08/18/18 08/19/18 08/19/18 21:59 05:59 13:59 Intake Total 50 600 Output Total 400 600 Balance -350 0 Weight 114.759 kg Intake & Output: Intake & Output 08/18/18 08/19/18 08/19/18 21:59 05:59 13:59 Intake Total 50 600 Output Total 400 600 Balance -350 0 Weight 114.759 kg Intake: IV 50 Oral 600 Output: Void Amount 400 600 Other: Urine Appearance Clear Urine Color Dark Yellow Exam: General: Alert, Awake, No acute Distress Eyes/N/T: EOMI, Head/Neck: neck supple, CV: RRR, No murmurs, Pulm: b/l rales, no wheezing today Abd: soft, abdomen nontender, +BS x4 Ext: no clubbing/cyanosis, 1-2+ b/l LE/edema Neuro: Alert, no focal deficits, moves all extremities, Skin: warm/dry Medical - PN: Obj Da - Labs CBC & Chem 7: 08/19/18 04:05 08/19/18 04:05 Labs: Abnormal Lab Results 08/19/18 08/19/18 08/18/18 04:05 04:05 04:20 WBC 3.9 L RBC 3.13 L Hgb 8.3 L Hct 25.8 L POC Hct RDW 15.1 H Plt Count 139 L MPV Gran % Lymph % (Auto) [place] % (Auto) 15.3 H Lymph # (Auto) 1.1 L Band Neutrophils % Lymphocytes % POC BUN BUN 34 H 40 H Creatinine 1.5 H 1.5 H POC Creatinine Glucose 121 H 145 H POC Glucose Uric Acid 8.4 H Calcium 7.8 L 8.0 L POC WB Ioniz Calcium AST Lactate Dehydrogenase 344 H NT-Pro-B Natriuret Pep 1325.0 H Total Protein 5.7 L Albumin 2.7 L Albumin/Globulin Ratio 0.9 L Triglycerides 214 H LDL Cholesterol, Calc Non-HDL Cholesterol HDL Cholesterol Amylase Lipase 774 H Urine Protein Urine Glucose (UA) Urine Occult Blood Ur Leukocyte Esterase Urine RBC Urine WBC Amorphous Crystals Hyaline Casts 08/18/18 08/17/18 08/17/18 04:20 22:45 11:53 WBC 4.1 L RBC 3.22 L Hgb 8.6 L Hct 26.5 L POC Hct RDW 15.5 H Plt Count MPV Gran % Lymph % (Auto) [place] % (Auto) Lymph # (Auto) 0.8 L Band Neutrophils % Lymphocytes % POC BUN BUN Creatinine POC Creatinine Glucose POC Glucose Uric Acid Calcium POC WB Ioniz Calcium AST Lactate Dehydrogenase NT-Pro-B Natriuret Pep Total Protein Albumin Albumin/Globulin Ratio Triglycerides LDL Cholesterol, Calc Non-HDL Cholesterol HDL Cholesterol Amylase 151 H Lipase 959 H Urine Protein Urine Glucose (UA) Urine Occult Blood Ur Leukocyte Esterase Urine RBC Urine WBC Amorphous Crystals Hyaline Casts 08/17/18 08/17/18 08/17/18 11:53 02:30 00:55 WBC RBC Hgb Hct POC Hct RDW Plt Count MPV Gran % Lymph % (Auto) [place] % (Auto) Lymph # (Auto) Band Neutrophils % Lymphocytes % POC BUN BUN Creatinine POC Creatinine Glucose POC Glucose Uric Acid Calcium POC WB Ioniz Calcium AST Lactate Dehydrogenase 575 H NT-Pro-B Natriuret Pep Total Protein Albumin Albumin/Globulin Ratio Triglycerides 208 H LDL Cholesterol, Calc 113 H Non-HDL Cholesterol 154 H HDL Cholesterol 29 L Amylase Lipase Urine Protein >=500 A Urine Glucose (UA) 150 A Urine Occult Blood 0.2 A Ur Leukocyte Esterase 250 A Urine RBC 9 H Urine WBC 74 H Amorphous Crystals Few A Hyaline Casts 25 H 08/16/18 08/16/18 08/16/18 22:45 22:45 22:45 WBC RBC 3.64 L Hgb 9.8 L Hct 29.6 L POC Hct 28.0 L RDW 14.9 H Plt Count MPV 10.6 H Gran % 79.4 H Lymph % (Auto) 10.6 L [place] % (Auto) Lymph # (Auto) 0.8 L Band Neutrophils % 11 H Lymphocytes % 10 L POC BUN 43 H BUN 47 H Creatinine 1.9 H POC Creatinine 2.2 H Glucose 269 H POC Glucose 264 H Uric Acid Calcium 8.4 L POC WB Ioniz Calcium 1.08 L AST 40 H Lactate Dehydrogenase NT-Pro-B Natriuret Pep 4503.0 H Total Protein Albumin 3.0 L Albumin/Globulin Ratio 0.9 L Triglycerides LDL Cholesterol, Calc Non-HDL Cholesterol HDL Cholesterol Amylase Lipase 610 H Urine Protein Urine Glucose (UA) Urine Occult Blood Ur Leukocyte Esterase Urine RBC Urine WBC Amorphous Crystals Hyaline Casts Meds: Medications Acetaminophen (Tylenol) 650 mg PO Q6HP PRN PRN Reason: PAIN/FEVER > 101 Hydrocodone Bitart/Acetaminophen ([place] 5/325mg) 1 tab PO Q4HP PRN PRN Reason: PAIN LEVEL 3-6 Last Admin: 08/18/18 21:46 Dose: 1 tab Documented by: Albuterol Sulfate (Ventolin) 2 puff INH QIDP PRN PRN Reason: Shortness Of Breath Albuterol/Ipratropium (Duoneb) 3 ml NEB Q6HP PRN PRN Reason: Shortness Of Breath Last Admin: 08/18/18 16:54 Dose: 3 ml Documented by: Amlodipine Besylate (Norvasc) 10 mg PO QDAY [facility] Last Admin: 08/18/18 08:42 Dose: 10 mg Documented by: Atenolol (Tenormin) 25 mg PO DAILY [facility] Last Admin: 08/18/18 08:42 Dose: 25 mg Documented by: Atorvastatin Calcium (Lipitor) 20 mg PO QDAY [facility] Last Admin: 08/18/18 08:42 Dose: 20 mg Documented by: Benzonatate (Tessalon) 100 mg PO TIDP PRN PRN Reason: Cough Ceftriaxone Sodium (Rocephin) 1 gm IV DAILY [facility] Last Admin: 08/18/18 08:42 Dose: 1 gm Documented by: Enoxaparin Sodium (Lovenox) 40 mg SQ DAILY [facility] Last Admin: 08/18/18 08:43 Dose: 40 mg Documented by: Gabapentin (Neurontin) 300 mg PO BID [facility] Last Admin: 08/18/18 21:12 Dose: 300 mg Documented by: Guaifenesin (Mucinex) 600 mg PO BID [facility] Last Admin: 08/18/18 21:12 Dose: 600 mg Documented by: Azithromycin 500 mg/ Dextrose 250 mls @ 250 mls/hr IV DAILY [facility]; Protocol Stop: 08/19/18 09:59 Last Infusion: 08/18/18 10:00 Dose: Infused Documented by: Metronidazole (Flagyl) 500 mg PO Q8 [facility]; Protocol Last Admin: 08/18/18 21:12 Dose: 500 mg Documented by: Naloxone HCl (Narcan) 0.1 mg IV Q2MIN PRN PRN Reason: Opiate Reversal Ondansetron HCl (Zofran) 4 mg IV Q4HP PRN PRN Reason: Nausea And Vomiting Insulin Degludec/Liraglutide [ Xultophy 100 Unit-3. 6 Mg/Ml] Pen 1 dose SUB-Q DAILY [facility] Last Admin: 08/18/18 08:43 Dose: 1 dose Documented by: Prochlorperazine (Compazine) 5 mg IV Q4HP PRN PRN Reason: Nausea And Vomiting Senna (Senokot) 2 tab PO HS PRN PRN Reason: Constipation Last Admin: 08/18/18 21:13 Dose: 2 tab Documented by: Sodium Chloride (Saline Flush) 10 ml IV Q8 [facility] Last Admin: 08/19/18 06:53 Dose: Not Given Documented by: Medical - PN: A/P - Time Spent With Patient Total time spent is greater than 50% in coordination of care (as documented) at patient's floor/unit and/or counseling patient: - Narrative A/P Narrative: A: *PNA and (+ Metapneumovirus): -PCT 0.13<0.28; myco/strep neg *Acute hypoxic respiratory failure with Bronchospasm: 2/2 above -on 2L NC sats mid 90's -CT chest -slowly improving *Acute on chronic peripheral edema: -echo EF 50%, Mod PH, diastlic dysfxn *?Acute pancreatitis: low renetta's, mild abd pain. suspect gallstone related -GB w/o itis, 6mm stone present, eventually d/w surgeon when pulm/gu infection cleared *UTI: *EMELIA (not on home CPAP b/c of cost): *AMANDA on CKD III: follow with dr jordan -1.5<1.9 *Anemia of CD: *HTN/HLD *DM w/neuropathy: *History of sarcoidosis *obesity: * P: -IV Abx -IS/Acapella -prednisone, nebs, -wean O2 -ct chest -leg wraps -clear diet, advance to full -ambulation -ppx: [facility] - PN: Qual - Stroke Symptom Onset Unknown: No - VTE Deep Vein Thrombosis/Pulmonary Embolism Present on Admission: No
[2018-08-19] MEDS ORDERED: IPRATROPIUM/ALBUTEROL 3 ML AMPUL.NEB NEB SCH (07:15)
[2018-08-19] MEDS: metroNIDAZOLE 500 MG TABLET PO SCH ×3 (07:27→23:35)
[2018-08-19] MEDS: IPRATROPIUM/ALBUTEROL 3 ML AMPUL.NEB NEB SCH ×3 (07:35→19:06)
[2018-08-19] MEDS ORDERED: POLYETHYLENE GLYCOL 3350 17 GM PACKET PO PRN (09:14)
[2018-08-19] MEDS ORDERED: LACTULOSE 20 GM/30 ML ORAL.SOL PO PRN (09:15)
--- NOTE | 2018-08-19 09:39 | Cat Scan Report ---
CLINICAL INFORMATION: Hypoxia. Follow-up diffuse infiltrates COMPARISON: 08/17/[address] TECHNIQUE: 0.625 mm axial slices were obtained from the lung apices through the bases without intravenous contrast. 2.5 mm Sagittal, coronal and axial reformatted images were processed and reviewed at bone, lung and soft tissue windows. 7 mm axial MIP images were also reconstructed to optimize pulmonary nodule detection.The exam was performed using radiation dose optimization techniques including, but not limited to, automated exposure control, adjustment of the mA and/or kV according to patient size and use of iterative reconstruction technique. FINDINGS: Pulmonary parenchymal windows again show diffuse nodular alveolar infiltrates in both lungs. A region of consolidation in the posterior segment left upper lobe shows moderate improved aeration. There is a: however, a new region of consolidation in the anterior posterior segment of the right upper lobe with associated volume loss is suspicious for superimposed atelectasis. A small region of consolidation in the posterior left lower lobe shows improved aeration. Otherwise, the extent of the disease is similar to the chest CT two days ago. There are only tiny bilateral pleural effusions. Mediastinal windows show the noncontrasted heart be normal in size configuration. Central pulmonary arteries are enlarged: pulmonary artery diameter 4 cm - as previously seen. The noncontrast thoracic aorta is unremarkable. There are borderline enlarged lymph nodes in lower mediastinal and both hilar region which are unchanged likely representing benign reactive adenopathy. Esophagus is normal. Thyroid is unremarkable. Bone and soft tissues the chest wall are normal. Images should the superior abdomen show no abnormality. IMPRESSION: 1. Diffuse nodular alveolar infiltrates throughout both lungs. A moderate region of consolidation in the anterior segment of the left upper lobe and a smaller focal region of consolidation in the posterior left lower lobe have both improved. Otherwise, the extent of infiltrate is quite similar to the CT two days ago. Differential diagnosis includes bilateral pneumonia, aspiration, and noncardiogenic pulmonary edema including diffuse alveolar damage. The possibility of more unusual etiologies often induced by medication or associated collagen vascular diseases should also be entertained: Acute sarcoidosis, nonspecific interstitial pneumonia, BOOP and eosinophilic pneumonia. Consider pulmonary consultation Interpreted and Authenticated by: Janusz Bellamy 08/19/18
[2018-08-19] MEDS: cefTRIAXone 1 GM VIAL IV SCH ×2 (09:46→11:47)
[2018-08-19] MEDS: amLODIPine 10 MG TABLET PO SCH (09:46)
[2018-08-19] MEDS: ATORVASTATIN 20 MG TABLET PO SCH (09:46)
[2018-08-19] MEDS: ATENOLOL 50 MG TABLET PO SCH (09:46)
[2018-08-19] MEDS: GABAPENTIN 300 MG CAPSULE PO SCH ×2 (09:46→20:31)
[2018-08-19] MEDS: ENOXAPARIN 40 MG/0.4 ML SYRINGE SQ SCH (09:50)
[2018-08-19] MEDS: LIRAGLUTIDE SUB-Q SCH (09:52)
[2018-08-19] MEDS: INSULIN DEGLUDEC SUB-Q SCH (09:52)
[2018-08-19] MEDS ORDERED: ALBUMIN HUMAN 12.5 GM/50 ML BAG IV ONE (10:16)
[2018-08-19] MEDS ORDERED: FUROSEMIDE 40 MG/4 ML VIAL IV ONE (10:17)
--- NOTE | 2018-08-19 11:39 | Discharge Summary ---
Medical - DS: Prov Patient information: Note initiated : 08/19/18 at 11:36 am Service Date, if different from initiated Date: [] Patient: Ashlie Reagan 53 y/o F admitted on 08/17/18 for Shortness of breath. Chief Complaint: [] Date of admission: 08/17/18 02:42 Discharge date: 08/20/18 Primary care physician: Luis Barnes Consults: 08/17/18 Consult to Physician [CONS] Stat Comment: Consulting Provider: Erlin Suarez Reason For Exam: Physician to Consult Medical - DS: Meds - Discharge Medications Prescriptions: Levofloxacin [Levaquin] 750 mg PO DAILY #4 tab predniSONE [Prednisone] 40 mg PO QAC #1 tab Active and Home Medications: Home Medications Accu-Check Fastclix Lancets 1 each .ROUTE PRN PRN 07/10/17 [History Confirmed 08/17/18 Last Taken Unknown] Pen [place] 32G x 4MM Novafine screw on 1 each .ROUTE .MEDSUPPLY 07/10/17 [History Confirmed 08/17/18 Last Taken Unknown] albuterol sulfate HFA 90 mcg/actuation aerosol inhaler 2 puff INHALATION QID PRN g 07/10/17 [History Confirmed 08/16/18 Last Taken Unknown] blood sugar diagnostic strips See Dose Instructions .MEDSUPPLY #20 each 07/10/17 [History Confirmed 08/17/18 Last Taken Unknown] blood-glucose meter See Dose Instructions .ROUTE .MEDSUPPLY #1 each 07/10/17 [History Confirmed 08/17/18 Last Taken Unknown] insulin degludec 100 unit-liraglutide 3.6 mg/mL(3 mL) subcutaneous pen 20 unit SUB-Q QDAY ml 07/10/17 [History Confirmed 08/17/18 Last Taken Unknown] atorvastatin 20 mg tablet 20 mg PO QDAY 09/25/17 [History Confirmed 08/16/18 Last Taken Unknown] amlodipine 10 mg tablet 10 mg PO QDAY #90 tab 02/18/18 [Rx Confirmed 08/16/18 Last Taken Unknown] atenolol 25 mg tablet 25 mg PO QDAY #90 tab 02/18/18 [Rx Confirmed 08/16/18 Last Taken Unknown] gabapentin 300 mg capsule 300 mg PO TID cap 02/18/18 [History Confirmed 08/16/18 Last Taken Unknown] Benzonatate [Tessalon] 100 mg PO TIDP PRN 08/16/18 [History Confirmed 08/16/18 Last Taken Unknown] Cholecalciferol (Vitamin D3) [Vitamin D] 2,000 unit PO DAILY 08/16/18 [History Confirmed 08/17/18 Last Taken Unknown] Minocycline [Minocin] 100 mg PO BID 08/16/18 [History Confirmed 08/16/18 Last Taken Unknown] Auto cpap 1 each .ROUTE .MEDSUPPLY 08/17/18 [History Confirmed 08/17/18 Last Taken Unknown] Furosemide [Lasix] 40 mg PO TID 08/17/18 [History Confirmed 08/17/18 Last Taken Unknown] Home Medications Accu-Check Fastclix Lancets 1 each .ROUTE PRN PRN 07/10/17 [History Confirmed 08/17/18 Last Taken Unknown] Pen [place] 32G x 4MM Novafine screw on 1 each .ROUTE .MEDSUPPLY 07/10/17 [History Confirmed 08/17/18 Last Taken Unknown] albuterol sulfate HFA 90 mcg/actuation aerosol inhaler 2 puff INHALATION QID PRN g 07/10/17 [History Confirmed 08/16/18 Last Taken Unknown] blood sugar diagnostic strips See Dose Instructions .MEDSUPPLY #20 each 07/10/17 [History Confirmed 08/17/18 Last Taken Unknown] blood-glucose meter See Dose Instructions .ROUTE .MEDSUPPLY #1 each 07/10/17 [History Confirmed 08/17/18 Last Taken Unknown] insulin degludec 100 unit-liraglutide 3.6 mg/mL(3 mL) subcutaneous pen 20 unit SUB-Q QDAY ml 07/10/17 [History Confirmed 08/17/18 Last Taken Unknown] atorvastatin 20 mg tablet 20 mg PO QDAY 09/25/17 [History Confirmed 08/16/18 Last Taken Unknown] amlodipine 10 mg tablet 10 mg PO QDAY #90 tab 02/18/18 [Rx Confirmed 08/16/18 Last Taken Unknown] atenolol 25 mg tablet 25 mg PO QDAY #90 tab 02/18/18 [Rx Confirmed 08/16/18 Last Taken Unknown] gabapentin 300 mg capsule 300 mg PO TID cap 02/18/18 [History Confirmed 08/16/18 Last Taken Unknown] Benzonatate [Tessalon] 100 mg PO TIDP PRN 08/16/18 [History Confirmed 08/16/18 Last Taken Unknown] Cholecalciferol (Vitamin D3) [Vitamin D3] 2,000 unit PO DAILY 08/16/18 [History Confirmed 08/17/18 Last Taken Unknown] Auto cpap 1 each .ROUTE .MEDSUPPLY 08/17/18 [History Confirmed 08/17/18 Last Taken Unknown] Furosemide [Lasix] 40 mg PO TID 08/17/18 [History Confirmed 08/17/18 Last Taken Unknown] Levofloxacin [Levaquin] 750 mg PO DAILY #4 tab 08/19/18 [Rx Last Taken Unknown] predniSONE [Prednisone] 40 mg PO [facility] #1 tab 08/20/18 [Rx Last Taken Unknown] Medical - DS: Hosp Hospital course: Ms. Reagan is a 53 year old F who presents the ED with shortness of breath and found to have saturation 79% on room air. Previous day diagnosed with pneumonia. Cough which occasionally is productive of dark yellow sputum. She is been I am unable to get anything up for past couple days. She started developing shortness of breath on Sunday. She is also had weight gain with lower extreme swelling over the past month. She went to see Dr. Barnes for routine visit and during the visit he obtained a chest x-ray found her to have pneumonia and prescribed minocycline. She took a dose that that night and the next morning however she continued to worsen with her shortness of breath and so short of breath that she said to come to the ED. she is also complained of chills. Patient states that she had an episode of nausea vomiting on evening and after that had abdominal pain which describes as a sharp pain right upper quadrant. She does complain of some vague back pain since about that time. She has an appetite and total tolerating clear liquid diet. In the ED she had a CT chest abdomen pelvis which was showed kev-bronchial infiltrates with differential aspiration margins or infection. Has reported food/drinking on the wrong pipe on occasion but not particularly as of late. She denies any history of heart failure or heart conditions. No history of asthma or COPD. 08/18 Still slept okay. Coughing but unable to produce any sputum. Feels her shortness of breath is him proving from day-to-day. Currently on 3 L with sats mid 90s below her oxygen. Continue pulmonary toilet PRN nebulizers. Awaiting echo results. Continue wean down oxygen. Denies abdominal pain. No bleeding. Tolerating clear liquids. Will advance. 08/19 Has continued cough but unable to produce sputum. Feels shortness of breath similar yesterday. Has not gotten up and walked around much. Told her we need to get her moving 3 times a day walk around. Continue using IS/Acapella. 08/20 08/20 Doing well. Feeling much better. Ambulating on room air and maintaining oxygen. Stable for discharge and wanted to go home. Discharge diagnosis: Picture pneumonia with concomitant human metapneumovirus Secondary discharge diagnosis: Hypoxic respiratory failure diastolic heart failure, will be lipase, UTI, effective sleep apnea acute kidney injury on chronic anemia of chronic disease diabetes with neuropathy hypertension hyperlipidemia obesity - Time Spent with Patient Total time spent providing and/or coordinating discharge services: Greater than 30 minutes Medical - DS: Exam - Constitutional Vitals: Vital Signs Temp Pulse Pulse Resp BP Pulse Ox 08/19/18 08:00 97.6 F 71 18 162/76 96 08/19/18 07:46 74 16 08/19/18 07:45 97 08/19/18 04:00 97.6 F 69 14 144/76 95 08/19/18 00:00 98.6 F 67 14 129/70 96 08/18/18 20:00 98.3 F 79 12 152/76 93 08/18/18 16:54 68 16 08/18/18 16:00 69 20 150/70 93 08/18/18 12:00 98.8 F 72 20 138/44 92 Intake and Output 08/18/18 08/19/18 08/19/18 21:59 05:59 13:59 Intake Total 50 960 240 Output Total 400 600 300 Balance -350 360 -60 Intake: IV 50 Oral 960 240 Output: Void Amount 400 600 300 Other: Meal Dinner Breakfast Percent of Meal Consumed 100% 100% Feeding Ability Assist with Tray Set Up Independent Urine Appearance Clear Urine Color Dark Yellow Weight 114.759 kg Medical - DS: Data Labs on day of discharge: Labs from last 24 hours 08/19/18 08/19/18 04:05 04:05 WBC 3.9 L RBC 3.13 L Hgb 8.3 L Hct 25.8 L MCV 82.4 MCH 26.3 MCHC 31.9 RDW 15.1 H Plt Count 139 L MPV 10.1 Gran % 53.9 Lymph % (Auto) 28.2 [place] % (Auto) 15.3 H Eos % (Auto) 2.1 Baso % (Auto) 0.5 Gran # 2.1 Lymph # (Auto) 1.1 L [place] # (Auto) 0.6 Eos # (Auto) 0.1 Baso # (Auto) 0 Sodium 141 Potassium 3.7 Chloride 104 Carbon Dioxide 26 Anion Gap 11.0 BUN 34 H Creatinine 1.5 H GFR Calculation 39 Glucose 121 H Calcium 7.8 L Preliminary micro results at discharge 08/16/18 22:45 Blood Culture - Preliminary Blood 08/16/18 22:50 Blood Culture - Preliminary Blood Medical - DS: A/P - Patient/Caregiver Discharge Instructions Activity: increase activity as tolerated Diet: Consistent Carbohydrate Additional Instructions: Referral to see cardiology in 1 to 2 weeks for diastolic heart failure Prescriptions: Levofloxacin [Levaquin] 750 mg PO DAILY #4 tab predniSONE [Prednisone] 40 mg PO [facility] #3 tab - Follow up Plan Follow up with: Luis Barnes MD [Primary Care Provider] - Андрей Moss MD [Physician] - (edema) Disposition: Home, Self-Care Prognosis: Fair Rehab Potential: Fair Medical - DS: Qual - VTE Deep Vein Thrombosis/Pulmonary Embolism Present on Admission: No
[2018-08-19] MEDS: AZITHROMYCIN 500 MG in DEXTROSE 5% IN WATER 250 ML IV SCH (11:47)
[2018-08-19] MEDS: DOCUSATE SODIUM 100 MG CAPSULE PO SCH (20:31)
[2018-08-20] MEDS: IPRATROPIUM/ALBUTEROL 3 ML AMPUL.NEB NEB SCH ×2 (00:32→07:19)
[2018-08-20] MEDS: metroNIDAZOLE 500 MG TABLET PO SCH ×2 (05:25→14:32)
[2018-08-20 05:43] LABS: Basophils # (Auto) 0 K/mcL (0.0-0.3); Basophils % (Auto) 0.1 % (0.0-2.0); Eosinophils # (Auto) 0 K/mcL (0.0-0.7); Eosinophils % (Auto) 0 % (0.0-7.0); Granulocytes % (Auto) 71.9 % (38.0-78.0); Lymphocytes # (Auto) 0.6 K/mcL (1.5-4.8); Lymphocytes % (Auto) 15.2 % (15.5-49.0); Mean Cell Volume 82.1 fL (80.0-100.0); Mean Corpuscular HGB Conc 32.3 g/dL (31.0-36.0); Monocytes # (Auto) 0.5 K/mcL (0.1-0.9); Monocytes % (Auto) 12.8 % (1.0-12.0); Platelet Count 162 K/mcL (140-440); Red Cell Distribution Width 15.4 % (11.5-14.5)
[2018-08-20 06:39] LABS: ALT/SGPT 28 U/l (0-40); Albumin 2.8 gm/dL (3.2-5.2); Alkaline Phosphatase 84 U/L (39-117); Bilirubin,Direct < 0.2 mg/dL (0.0-0.3); Blood Urea Nitrogen 32 mg/dl (6-20); Gamma Glutamyl Transpeptidase 25 U/L (5-36); Uric Acid 9.2 mg/dL (2.5-8.0)
--- NOTE | 2018-08-20 07:14 | Internal Med Progress Note ---
Medical - PN: Subj Patient information: Note initiated : 08/20/18 at 7:07 am Service Date, if different from initiated Date: [] Patient: Ashlie Reagan 53 y/o F admitted on 08/17/18 for Shortness of breath. Chief Complaint: [] Interval history: Ms. Reagan is a 53 year old F who presents the ED with shortness of breath and found to have saturation 79% on room air. Previous day diagnosed with pneumonia. Cough which occasionally is productive of dark yellow sputum. She is been I am unable to get anything up for past couple days. She started developing shortness of breath on Sunday. She is also had weight gain with lower extreme swelling over the past month. She went to see Dr. Barnes for routine visit and during the visit he obtained a chest x-ray found her to have pneumonia and prescribed minocycline. She took a dose that that night and the next morning however she continued to worsen with her shortness of breath and so short of breath that she said to come to the ED. she is also complained of chills. Patient states that she had an episode of nausea vomiting on evening and after that had abdominal pain which describes as a sharp pain right upper quadrant. She does complain of some vague back pain since about that time. She has an appetite and total tolerating clear liquid diet. In the ED she had a CT chest abdomen pelvis which was showed kev-bronchial infiltrates with differential aspiration margins or infection. Has reported food/drinking on the wrong pipe on occasion but not particularly as of late. She denies any history of heart failure or heart conditions. No history of asthma or COPD. 08/18 Still slept okay. Coughing but unable to produce any sputum. Feels her shortness of breath is him proving from day-to-day. Currently on 3 L with sats mid 90s below her oxygen. Continue pulmonary toilet PRN nebulizers. Awaiting echo results. Continue wean down oxygen. Denies abdominal pain. No bleeding. Tolerating clear liquids. Will advance. 08/19 Has continued cough but unable to produce sputum. Feels shortness of breath similar yesterday. Has not gotten up and walked around much. Told her we need to get her moving 3 times a day walk around. Continue using IS/Acapella. Review of Systems: denies headache/fever/chills/nausea/vomiting/chest pain/diarrhea. Otherwise see above. - Constitutional Vitals: Vital Signs Temp Pulse Resp BP Pulse Ox 97.7 F 77 14 165/84 94 08/20/18 04:00 08/20/18 04:00 08/20/18 04:00 08/20/18 04:00 08/20/18 07:06 Period Temp Pulse Resp BP Sys/[place] Pulse Ox Last 24 Hr 97.6 F-98.4 F 71-89 14-22 153-174/73-85 93-97 Intake and Output 08/19/18 08/20/18 08/20/18 21:59 05:59 13:59 Intake Total 680 550 Output Total 1450 600 Balance -770 -50 Weight 116.12 kg Intake & Output: Intake & Output 08/19/18 08/20/18 08/20/18 21:59 05:59 13:59 Intake Total 680 550 Output Total 1450 600 Balance -770 -50 Weight 116.12 kg Intake: Oral 680 550 Output: Void Amount 750 600 Urine/Stool Mix 700 Other: Meal Dinner Percent of Meal Consumed 100% Feeding Ability Independent Urine Appearance Cloudy Clear Urine Color Dark Yellow Straw Urine Odor Normal Exam: General: Alert, Awake, No acute Distress Eyes/N/T: EOMI, Head/Neck: neck supple, CV: RRR, No murmurs, Pulm: b/l rales, no wheezing today Abd: soft, abdomen nontender, +BS x4 Ext: no clubbing/cyanosis, 1-2+ b/l LE/edema Neuro: Alert, no focal deficits, moves all extremities, Skin: warm/dry Medical - PN: Obj Da - Labs CBC & Chem 7: 08/20/18 04:27 08/20/18 04:27 Labs: Abnormal Lab Results 08/20/18 08/20/18 08/19/18 04:27 04:27 04:05 WBC 4.2 L RBC 3.30 L Hgb 8.8 L Hct 27.1 L RDW 15.4 H Plt Count Lymph % (Auto) 15.2 L [place] % (Auto) 12.8 H Lymph # (Auto) 0.6 L Band Neutrophils % Lymphocytes % BUN 32 H 34 H Creatinine 1.4 H 1.5 H Glucose 300 H 121 H Uric Acid 9.2 H Calcium 8.3 L 7.8 L Magnesium 2.7 H Lactate Dehydrogenase 355 H NT-Pro-B Natriuret Pep Total Protein 5.6 L Albumin 2.8 L Albumin/Globulin Ratio Triglycerides LDL Cholesterol, Calc Non-HDL Cholesterol HDL Cholesterol Lipase 08/19/18 08/18/18 08/18/18 04:05 04:20 04:20 WBC 3.9 L 4.1 L RBC 3.13 L 3.22 L Hgb 8.3 L 8.6 L Hct 25.8 L 26.5 L RDW 15.1 H 15.5 H Plt Count 139 L Lymph % (Auto) [place] % (Auto) 15.3 H Lymph # (Auto) 1.1 L 0.8 L Band Neutrophils % Lymphocytes % BUN 40 H Creatinine 1.5 H Glucose 145 H Uric Acid 8.4 H Calcium 8.0 L Magnesium Lactate Dehydrogenase 344 H NT-Pro-B Natriuret Pep 1325.0 H Total Protein 5.7 L Albumin 2.7 L Albumin/Globulin Ratio 0.9 L Triglycerides 214 H LDL Cholesterol, Calc Non-HDL Cholesterol HDL Cholesterol Lipase 774 H 08/17/18 08/17/18 08/17/18 11:53 11:53 02:30 WBC RBC Hgb Hct RDW Plt Count Lymph % (Auto) [place] % (Auto) Lymph # (Auto) Band Neutrophils % Lymphocytes % BUN Creatinine Glucose Uric Acid Calcium Magnesium Lactate Dehydrogenase 575 H NT-Pro-B Natriuret Pep Total Protein Albumin Albumin/Globulin Ratio Triglycerides 208 H LDL Cholesterol, Calc 113 H Non-HDL Cholesterol 154 H HDL Cholesterol 29 L Lipase 959 H 08/16/18 22:45 WBC RBC Hgb Hct RDW Plt Count Lymph % (Auto) [place] % (Auto) Lymph # (Auto) Band Neutrophils % 11 H Lymphocytes % 10 L BUN Creatinine Glucose Uric Acid Calcium Magnesium Lactate Dehydrogenase NT-Pro-B Natriuret Pep Total Protein Albumin Albumin/Globulin Ratio Triglycerides LDL Cholesterol, Calc Non-HDL Cholesterol HDL Cholesterol Lipase Meds: Medications Acetaminophen (Tylenol) 650 mg PO Q6HP PRN PRN Reason: PAIN/FEVER > 101 Hydrocodone Bitart/Acetaminophen (Orange 5/325mg) 1 tab PO Q4HP PRN PRN Reason: PAIN LEVEL 3-6 Last Admin: 08/18/18 21:46 Dose: 1 tab Documented by: Albuterol Sulfate (Ventolin) 2 puff INH QIDP PRN PRN Reason: Shortness Of Breath Albuterol/Ipratropium (Duoneb) 3 ml NEB Q6HP PRN PRN Reason: Shortness Of Breath Last Admin: 08/18/18 16:54 Dose: 3 ml Documented by: Albuterol/Ipratropium (Duoneb) 3 ml NEB Q6HRT [facility] Last Admin: 08/20/18 00:32 Dose: Not Given Documented by: Amlodipine Besylate (Norvasc) 10 mg PO QDAY [facility] Last Admin: 08/19/18 09:46 Dose: 10 mg Documented by: Atenolol (Tenormin) 25 mg PO DAILY [facility] Last Admin: 08/19/18 09:46 Dose: 25 mg Documented by: Atorvastatin Calcium (Lipitor) 20 mg PO QDAY [facility] Last Admin: 08/19/18 09:46 Dose: 20 mg Documented by: Benzonatate (Tessalon) 100 mg PO TIDP PRN PRN Reason: Cough Ceftriaxone Sodium (Rocephin) 1 gm IV DAILY [facility] Last Admin: 08/19/18 11:47 Dose: 1 gm Documented by: Docusate Sodium (Colace) 100 mg PO BID [facility] Last Admin: 08/19/18 20:31 Dose: 100 mg Documented by: Enoxaparin Sodium (Lovenox) 40 mg SQ DAILY [facility] Last Admin: 08/19/18 09:50 Dose: 40 mg Documented by: Gabapentin (Neurontin) 300 mg PO BID [facility] Last Admin: 08/19/18 20:31 Dose: 300 mg Documented by: Lactulose (Cephulac) 10 gm PO DAILYP PRN PRN Reason: Constipation Metronidazole (Flagyl) 500 mg PO Q8 [facility]; Protocol Last Admin: 08/20/18 05:25 Dose: 500 mg Documented by: Naloxone HCl (Narcan) 0.1 mg IV Q2MIN PRN PRN Reason: Opiate Reversal Ondansetron HCl (Zofran) 4 mg IV Q4HP PRN PRN Reason: Nausea And Vomiting Insulin Degludec/Liraglutide [ Xultophy 100 Unit-3. 6 Mg/Ml] Pen 1 dose SUB-Q DAILY [facility] Last Admin: 08/19/18 09:52 Dose: 1 dose Documented by: Polyethylene Glycol (Miralax) 17 gm PO DAILYP PRN PRN Reason: Constipation Last Admin: 08/19/18 09:44 Dose: 17 gm Documented by: Prednisone (Prednisone) 40 mg PO [facility] Prochlorperazine (Compazine) 5 mg IV Q4HP PRN PRN Reason: Nausea And Vomiting Senna (Senokot) 2 tab PO HS PRN PRN Reason: Constipation Last Admin: 08/18/18 21:13 Dose: 2 tab Documented by: Sodium Chloride (Saline Flush) 10 ml IV Q8 [facility] Last Admin: 08/19/18 23:35 Dose: 10 ml Documented by: Medical - PN: A/P - Time Spent With Patient Total time spent is greater than 50% in coordination of care (as documented) at patient's floor/unit and/or counseling patient: - Narrative A/P Narrative: A: *PNA and (+ Metapneumovirus): -PCT 0.13<0.28; myco/strep neg *Acute hypoxic respiratory failure with Bronchospasm: 2/2 above -ambulating on room air with sats 92-93 *Peripheral edema, chronic: -echo EF 50%, Mod PH, diastlic dysfxn *??Acute pancreatitis: nver really met criteria low renetta's, mild abd pain not indicative of pancreatitis. suspect gallstone related -GB w/o itis, 6mm stone present, f/u outpt, *UTI: *EMELIA (not on home CPAP b/c of cost): *AMANDA on CKD III: follow with dr jordan -1.4<<1.9 *Anemia of CD: *HTN/HLD *DM w/neuropathy: *History of sarcoidosis *obesity: * P: -IV Abx -IS/Acapella -prednisone, nebs, -wean O2 -leg wraps, fluid restrict to 2L (has been drinking 2.7-3L'sday) -clear diet, advance to full -home insulin and SSI -cont BB, intolerant of ACEI(hyperkalemia) -ambulation -ppx: [employer] Medical - PN: Qual - Stroke Symptom Onset Unknown: No - VTE Deep Vein Thrombosis/Pulmonary Embolism Present on Admission: No
[2018-08-20] MEDS: INSULIN LISPRO 1 UNIT/0.01 ML UNIT SQ SCH ×2 (07:40→11:59)
[2018-08-20] MEDS: 0.9 % SODIUM CHLORIDE 10 ML SYRINGE IV SCH ×2 (07:41→14:32)
[2018-08-20] MEDS ORDERED: predniSONE 20 MG TABLET PO SCH (08:00)
[2018-08-20] MEDS: DOCUSATE SODIUM 100 MG CAPSULE PO SCH (09:08)
[2018-08-20] MEDS: GABAPENTIN 300 MG CAPSULE PO SCH (09:08)
[2018-08-20] MEDS: ATENOLOL 50 MG TABLET PO SCH (09:08)
[2018-08-20] MEDS: amLODIPine 10 MG TABLET PO SCH (09:09)
[2018-08-20] MEDS: ATORVASTATIN 20 MG TABLET PO SCH (09:09)
[2018-08-20] MEDS: cefTRIAXone 1 GM VIAL IV SCH (09:10)
[2018-08-20] MEDS: INSULIN DEGLUDEC SUB-Q SCH (09:10)
[2018-08-20] MEDS: LIRAGLUTIDE SUB-Q SCH (09:10)
[2018-08-20] MEDS: ENOXAPARIN 40 MG/0.4 ML SYRINGE SQ SCH (09:13)
[2018-08-20] MEDS ORDERED: ALBUMIN HUMAN 12.5 GM/50 ML BAG IV ONE (10:29)
[2018-08-20] MEDS ORDERED: FUROSEMIDE 40 MG/4 ML VIAL IV ONE (10:30)
== END 2018-08-20 13:50 | disposition home or self-care (01) | DRG 193 ==
LOC: ED 22:17 → MEDSUR 08-17 02:42
PROVIDERS: ADMIT Internal Medicine; ATTEND Internal Medicine

== ENCOUNTER 2021-01-06 20:09 | Inpatient (IN) ==
[2021-01-06] MEDS ORDERED: ONDANSETRON 4 MG/2 ML VIAL IV ONE (20:38)
[2021-01-06] MEDS ORDERED: LACTATED RINGERS 1,000 ML IV ONE (20:38)
[2021-01-06 21:33] LABS: Basophils # (Auto) 0.01 K/mcL (0.00-0.30); Basophils % (Auto) 0.2 % (0.0-2.0); Eosinophils # (Auto) 0 K/mcL (0.00-0.70); Eosinophils % (Auto) 0 % (0.0-7.0); Hematocrit 35.1 % (34.1-44.9); Lymphocytes # (Auto) 0.72 K/mcL (1.50-4.80); Lymphocytes % (Auto) 13.8 % (15.5-49.0); Mean Cell Volume 82.4 fL (80.0-100.0); Mean Corpuscular HGB Conc 31.3 g/dL (31.0-36.0); Mean Platelet Volume 12.4 fL (7.4-10.4); Monocytes # (Auto) 0.43 K/mcL (0.10-0.90); Monocytes % (Auto) 8.2 % (1.0-12.0); Neutrophils % (Auto) 77.8 % (38.0-78.0); Platelet Count 122 K/mcL (140-440); RBC 4.26 M/mcL (3.59-5.38); Red Cell Distribution Width 14.6 % (11.5-14.5); WBC 5.2 K/mcL (4.5-11.0)
[2021-01-06 21:47] LABS: ALT/SGPT 14 U/L (<40); AST/SGOT 19 U/L (<32); Albumin 2.9 gm/dL (3.2-5.2); Albumin/Globulin Ratio 0.8 (1.0-2.3); Alkaline Phosphatase 97 U/L (39-117); Bilirubin,Total 0.2 mg/dL (0.1-1.0); Blood Urea Nitrogen 54 mg/dL (6-20); Calcium 8.4 mg/dL (8.6-10.4); Carbon Dioxide 26 mmol/L (22-30); Chloride 96 mmol/L (96-108); Globulin 3.5 gm/dL (2.2-3.7); Glomerular Filtration Rate 31; Glucose 384 mg/dL (70-105)
[2021-01-06] MEDS ORDERED: DEXAMETHASONE 10 MG/ML VIAL IV ONE (21:52)
[2021-01-06] MEDS ORDERED: INSULIN REGULAR, HUMAN 1 UNIT/0.01 ML UNIT SQ ONE (21:53)
--- NOTE | 2021-01-06 22:17 | Internal Med History&Physical ---
HPI History of Present Illness Patient information: Note initiated : 01/06/21 at 10:13 pm Service Date, if different from initiated Date: [] Patient: Ashlie Reagan 55 y/o F admitted on for weakness/nvd. Chief Complaint: [] History of present illness: Ms. Reagan is a 55 year old F woman history of type 2 diabetes mellitus, essential hypertension's, mixed dyslipidemia, chronic kidney disease, presenting with 9-day history of shortness of breath, productive cough with red sputum, nausea and vomiting, diarrhea, and shaking chills. There was no prior similar episode. She is an vaccinated against Covid pneumonia. Over the past 9 days, she is experiencing shortness of breath, productive cough with red sputum, nausea and vomiting, diarrhea, and shaking chills. She denies respiratory wheezings. She denies any chest pain or abdominal pain. She denies any subjective fever or diaphoresis. She denies muscle cramps. Upon ED presentations, vital signs significant with oxygen saturations in the mid 80s on room air with rest of the vital signs within normal limits. Labs significant with lack of leukocytosis with WBC 5.2. Serum creatinine level 1.8. Serum glucose level 384. Chest x-ray showing bilateral patchy infiltrates consistent with Covid pneumonia. Constitutional Constitutional: Present chills; Absent excessive sweating, fatigue, fever(s) and weakness EENT Eyes: Absent blurry vision, change in vision, loss of vision and other visual disturbances Ears: Absent decreased hearing and tinnitus Nose, mouth and throat: Absent abnormal hearing, dry mouth, headache(s), nasal congestion and sore throat Cardiovascular Cardiovascular: Absent chest pain, chest pain at rest, edema, irregular heart rhythm and palpatations Respiratory Respiratory: Present cough, dyspnea and excessive phlegm production; Absent wheezing Gastrointestinal Gastrointestinal: Present diarrhea, nausea and vomiting; Absent abdominal pain and constipation Musculoskeletal Musculoskeletal: Absent back pain, deformity, limited range of motion, muscle cramps, muscle weakness and numbness Integumentary Integumentary: Absent lesions, rash and wounds Neurological Neurological: Absent focal weakness, headache(s) and numbness Psychiatric Psychiatric: Absent anxiety, depression and hallucinations PFSH PFSH All Active Problems (Updated 01/06/21 @ 22:21 by Duncan Hermosillo MD) Acute respiratory failure with hypoxia (Acute) Pneumonia due to COVID-19 virus (Acute) Morbid obesity (Acute) Hyperlipidemia (Chronic) Retinal detachment (Chronic) Peripheral neuropathy (Chronic) Heart murmur, aortic (Chronic) Sarcoidosis (Chronic) Adenocarcinoma of endometrium (Chronic) Erythema nodosum (Chronic) Uterine cancer (Chronic) Dizziness (Chronic) Fatigue (Chronic) Endometrial cancer (Chronic) Bronchitis (Chronic) 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 (Chronic) CKD stage 3 due to type 2 diabetes mellitus (Chronic) Obstructive sleep apnea hypopnea, mild (Chronic) Localized edema due to fluid overload (Chronic) Secondary hyperparathyroidism of renal origin (Chronic) Vitamin D deficiency (Chronic) Community acquired pneumonia (Chronic) Pancreatitis (Chronic) Hearing loss of both ears (Acute) Right ear pain (Acute) Chronic kidney disease (CKD) stage G4/A3, severely decreased glomerular filtration rate (GFR) between 15-29 mL/min/1.73 square meter and albuminuria creatinine ratio greater than 300 mg/g (Chronic) Diabetic nephropathy (Chronic) Acute pain of right foot (Acute) Plantar fasciitis of left foot (Acute) Callus (Acute) Wart (Acute) Nail fungus (Acute) Hammertoe of left foot (Acute) Anemia in stage 4 chronic kidney disease (Chronic) Hypertension in stage 4 chronic kidney disease due to type 2 diabetes mellitus (Chronic) Acute midline thoracic back pain (Acute) Acute lumbar back pain (Acute) Numbness and tingling in both hands (Acute) Radiating back pain (Acute) Laceration (Acute) Contusion of right shoulder (Acute) Spasm of back muscles (Acute) Medical History Adenocarcinoma of endometrium Bronchitis Cervical cancer CKD stage 3 due to type 2 diabetes mellitus Kidney biopsy on 08/23/17. Community acquired pneumonia Dizziness Endometrial cancer 1 radiation treatment Erythema nodosum Fatigue Heart murmur, aortic Hyperlipidemia Localized edema due to fluid overload 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 Random urine total protein/creatinine ratio on 11/20/17: 4,170 mg/g creatinine. Obstructive sleep apnea hypopnea, mild Pancreatitis Peripheral neuropathy Bilateral lower extremity Retinal detachment Sarcoidosis Secondary hyperparathyroidism of renal origin Uterine cancer Vitamin D deficiency Surgical History History of cholecystectomy 04/2019 Sarah Andujar History of eye surgery (11/29/15) Bilateral laser History of eye surgery (~04/2016) 04/18 & 12/16 Left History of left cataract surgery History of tonsillectomy History of total abdominal hysterectomy (~1997) Family History Mother Hypertension Diabetes Grandmother Cancer Maternal Grandfather Hypertension Maternal Diabetes Maternal Stroke Paternal Family/Other Diabetes Social History marital status: occupation: [employer] Worker physical activity: none alcohol intake frequency: holiday/special occasion only substance use type: does not use seatbelt use: always MEDS/ALLERGIES Home Medications and Allergies Home Medications Medication Instructions Recorded Confirmed Type Accu-Check Fastclix Lancets 1 each .ROUTE PRN PRN 07/10/17 08/26/20 History albuterol sulfate 90 mcg/actuation 2 puff INHALATION QID PRN g 07/10/17 08/26/20 History aerosol inhaler blood sugar diagnostic #20 each 07/10/17 08/26/20 History blood-glucose meter #1 each 07/10/17 08/26/20 History cholecalciferol (vitamin D3) 50 4,000 unit PO DAILY #60 cap 01/01/20 08/26/20 Rx mcg (2,000 unit) capsule diclofenac sodium 1 % topical gel 2 g TOPICAL QID PRN #100 g 08/26/20 08/26/20 Rx methocarbamol 750 mg tablet 750 mg PO QID PRN #56 tab 08/26/20 08/26/20 Rx insulin degludec 100 30 unit SUB-Q QDAY #15 ml 09/13/20 Rx unit-liraglutide 3.6 mg/mL(3 mL) subcutaneous pen amlodipine 5 mg tablet See Rx Instructions .ROUTE 10/05/20 Rx .COMPLEX #30 tab atorvastatin 20 mg tablet See Rx Instructions .ROUTE 10/05/20 Rx .COMPLEX #30 tab chlorthalidone 25 mg tablet See Rx Instructions .ROUTE 10/05/20 Rx .COMPLEX #30 tab spironolactone 25 mg tablet See Rx Instructions .ROUTE 10/05/20 Rx .COMPLEX #30 tab torsemide 10 mg tablet 40 mg PO QDAY #360 tab 10/11/20 Rx Pen [place] 32G x 4MM Novafine #1 ea 11/02/20 Rx screw on pregabalin 150 mg capsule 150 mg PO BID #60 cap 11/02/20 Rx Allergies Allergy/AdvReac Type Severity Reaction Status Date / Time morphine Allergy Mild Rash Verified 12/11/20 22:39 Penicillins Allergy Mild Rash Verified 12/11/20 22:39 clindamycin Allergy Unknown Rash Verified 12/11/20 22:39 EXAM Constitutional Vitals: Temp Pulse Resp BP Pulse Ox 37.0 C 87 22 191/95 91 01/06/21 20:12 01/06/21 21:55 01/06/21 20:12 01/06/21 21:46 01/06/21 21:55 General appearance: cooperative, mild distress and obese Head Head exam: Present atraumatic and normocephalic Eye Eye exam: Present EOMI and PERRL ENT ENT exam: Present mucous membranes moist, normal exam and normal external ear exam Additional comments: Nasal cannula in place Neck Neck exam: Present normal inspection; Absent lymphadenopathy, tenderness and thyromegaly Respiratory Respiratory exam: Absent accessory muscle use, respiratory distress and wheezes Cardiovascular Cardiovascular exam: Present normal rate and rhythm; Absent JVD GI/Abdominal GI/Abdominal exam: Present normal bowel sounds and soft; Absent organomegaly and tenderness Extremities Exam Extremities exam: Present full ROM, normal capillary refill and normal inspection; Absent tenderness Neurological Exam Neurological exam: Present alert, CN II-XII intact and oriented X3; Absent motor sensory deficit Psychiatric Psychiatric exam: Present normal affect and normal mood; Absent anxious and depressed Skin Skin exam: Present dry and intact DATA Data Completed and Pending Labs: Labs from last 24 hours 01/06/21 01/06/21 01/06/21 20:57 20:57 20:39 WBC 5.2 RBC 4.26 Hgb 11.0 L Hct 35.1 MCV 82.4 MCH 25.8 L MCHC 31.3 RDW 14.6 H Plt Count 122 L MPV 12.4 H Neut % (Auto) 77.8 Lymph % (Auto) 13.8 L [place] % (Auto) 8.2 Eos % (Auto) 0 Baso % (Auto) 0.2 Lymph # (Auto) 0.72 L [place] # (Auto) 0.43 Eos # (Auto) 0 Baso # (Auto) 0.01 Absolute Neutrophils 4.06 Sodium 135 Potassium 4.1 Chloride 96 Carbon Dioxide 26 Anion Gap 13.0 BUN 54 H Creatinine 1.8 H GFR Calculation 31 Glucose 384 H Calcium 8.4 L Total Bilirubin 0.2 AST 19 ALT 14 Alkaline Phosphatase 97 Troponin T 0.01 Total Protein 6.4 Albumin 2.9 L Globulin 3.5 Albumin/Globulin Ratio 0.8 L Lipase 70 H A/P Assessment and plan (1) Hyperlipidemia: Status: Chronic (2) Anemia in stage 4 chronic kidney disease: Status: Chronic (3) Hypertension in stage 4 chronic kidney disease due to type 2 diabetes mellitus: Status: Chronic (4) Morbid obesity: Status: Acute (5) Pneumonia due to COVID-19 virus: Status: Acute (6) Acute respiratory failure with hypoxia: Status: Acute Narrative A/P Narrative: Assessment and plan: #1 Covid pneumonia with associated acute respiratory failure with hypoxia: Admit to inpatient MedSurg with telemetry Isolations protocol: Airborne and contact Serial lactic acid Procalcitonin Blood culture Inflammatory markers CBC with auto differential in the morning to trend WBC Chest x-ray Remdesivir Dexamethasone Lovenox Tylenol as needed fever Robitussin-DM as needed cough DuoNeb nebulizer as needed wheezing #2 type 2 diabetes mellitus: Hemoglobin A1c Hold any oral hypoglycemics Continue scheduled long-acting insulin regimen from home Correctional scale insulin AC at bedtime Accu-Chek AC HS Hypoglycemia protocol Diabetic diet 3. Essential hypertension's: Currently hypotensive Continue amlodipine, diuretics, and spironolactone from home Hydralazine 10 mg IV every 4-6 hours as needed SBP greater than or equal to 180 mmHg and diastolic blood pressure greater than or equal to 110 mmHg 4. History of mixed dyslipidemia: Continue statin therapy 5. Anemia associated with chronic kidney disease stage IV Avoid nephrotoxic agent Saline lock CMP in the morning to trend kidney functions CBC with auto differential in the morning to trend H&H and transfuse PRBC if hemoglobin less than 7.0, active bleeding, or if the patient becomes symptomatic 6. Morbid obesity: Counseled patient on lifestyle modifications including healthy diet and regular exercise in order to lose weight GI prophylaxis: Not currently indicated DVT prophylaxis: Heparin CODE STATUS: DO NOT INTUBATE Prognosis: Guarded Dispositions: Inpatient MedSurg telemetry Time Spent With Patient Time: Total time spent is greater than 50% in coordination of care (as doc umented) at patient's floor/unit and/or counseling patient: Total time spent with greater than 50% in coordination of care (as documented) at patient's floor/unit and/or counseling patient:: Greater than 35 minutes
[2021-01-06] MEDS ORDERED: LOPERAMIDE 2 MG CAPSULE PO PRN ×3 (22:18→22:50)
[2021-01-06] MEDS ORDERED: guaiFENesin/DEXTROMETHORPHAN ORAL SOL PO PRN (22:50)
[2021-01-06] MEDS ORDERED: REMDESIVIR 200 MG in 0.9 % SODIUM CHLORIDE 250 ML IV ONE (22:50)
[2021-01-06] MEDS ORDERED: IPRATROPIUM/ALBUTEROL 3 ML AMPUL.NEB NEB PRN (22:50)
[2021-01-06] MEDS ORDERED: ONDANSETRON 4 MG/2 ML VIAL IV PRN (22:50)
[2021-01-06] MEDS ORDERED: METHOCARBAMOL 750 MG TABLET PO PRN (22:50)
[2021-01-06] MEDS ORDERED: hydrALAZINE 20 MG/ML VIAL IV PRN (22:50)
[2021-01-06] MEDS ORDERED: ACETAMINOPHEN 325 MG TABLET PO PRN (22:50)
[2021-01-06] MEDS ORDERED: DEXTROSE 31 GM ORAL.SUSP PO PRN (22:50)
[2021-01-06] MEDS ORDERED: DEXTROSE 50% 50 ML VIAL IV PRN (22:50)
[2021-01-06] MEDS: INSULIN LISPRO 1 UNIT/0.01 ML UNIT SQ SCH (23:20)
[2021-01-06] MEDS ORDERED: INSULIN LISPRO 1 UNIT/0.01 ML UNIT SQ ONE (23:23)
--- NOTE | 2021-01-07 00:35 | Emergency Department Note ---
HPI General Chief complaint: Weakness Stated complaint: weakness/nvd Time Seen by Provider: 01/06/21 20:38 Source: patient Mode of arrival: wheelchair Limitations: no limitations History of Present Illness HPI Narrative: Narrative: 55-year-old history of sarcoidosis, diabetes, CKD presented to the ED with 1 week of worsening generalized viral syndrome type symptoms fever, chills, fatigue, myalgias, diarrhea, shortness of breath, cough. No leg swelling no chest pain. Not Covid vaccinated. No other complaints Related Data Home Medications Medication Instructions Recorded Confirmed albuterol sulfate 90 mcg/actuation 2 puff INHALATION QID PRN g 07/10/17 01/06/21 aerosol inhaler Previous Rx's Medication Instructions Recorded cholecalciferol (vitamin D3) 50 4,000 unit PO DAILY #60 cap 01/01/20 mcg (2,000 unit) capsule diclofenac sodium 1 % topical gel 2 g TOPICAL QID PRN #100 g 08/26/20 insulin degludec 100 30 unit SUB-Q QDAY #15 ml 09/13/20 unit-liraglutide 3.6 mg/mL(3 mL) subcutaneous pen amlodipine 5 mg tablet See Rx Instructions .ROUTE 10/05/20 .COMPLEX #30 tab atorvastatin 20 mg tablet See Rx Instructions .ROUTE 10/05/20 .COMPLEX #30 tab chlorthalidone 25 mg tablet See Rx Instructions .ROUTE 10/05/20 .COMPLEX #30 tab spironolactone 25 mg tablet See Rx Instructions .ROUTE 10/05/20 .COMPLEX #30 tab torsemide 10 mg tablet 40 mg PO QDAY #360 tab 10/11/20 pregabalin 150 mg capsule 150 mg PO BID #60 cap 11/02/20 Allergies Allergy/AdvReac Type Severity Reaction Status Date / Time morphine Allergy Mild Rash Verified 12/11/20 22:39 Penicillins Allergy Mild Rash Verified 12/11/20 22:39 clindamycin Allergy Unknown Rash Verified 12/11/20 22:39 Review of Systems ROS ROS Narrative: Narrative: at least 10 systems reviewed and otherwise acutely negative except as in the HPI PFSH Narrative Patient History Narrative: Narrative: Medical/Surgical/Family History All Active Problems COVID (Acute) Acute respiratory failure with hypoxia (Acute) Pneumonia due to COVID-19 virus (Acute) Morbid obesity (Acute) Hyperlipidemia (Chronic) Retinal detachment (Chronic) Peripheral neuropathy (Chronic) Heart murmur, aortic (Chronic) Sarcoidosis (Chronic) Adenocarcinoma of endometrium (Chronic) Erythema nodosum (Chronic) Uterine cancer (Chronic) Dizziness (Chronic) Fatigue (Chronic) Endometrial cancer (Chronic) Bronchitis (Chronic) 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 (Chronic) CKD stage 3 due to type 2 diabetes mellitus (Chronic) Obstructive sleep apnea hypopnea, mild (Chronic) Localized edema due to fluid overload (Chronic) Secondary hyperparathyroidism of renal origin (Chronic) Vitamin D deficiency (Chronic) Community acquired pneumonia (Chronic) Pancreatitis (Chronic) Hearing loss of both ears (Acute) Right ear pain (Acute) Chronic kidney disease (CKD) stage G4/A3, severely decreased glomerular filtration rate (GFR) between 15-29 mL/min/1.73 square meter and albuminuria creatinine ratio greater than 300 mg/g (Chronic) Diabetic nephropathy (Chronic) Acute pain of right foot (Acute) Plantar fasciitis of left foot (Acute) Callus (Acute) Wart (Acute) Nail fungus (Acute) Hammertoe of left foot (Acute) Anemia in stage 4 chronic kidney disease (Chronic) Hypertension in stage 4 chronic kidney disease due to type 2 diabetes mellitus (Chronic) Acute midline thoracic back pain (Acute) Acute lumbar back pain (Acute) Numbness and tingling in both hands (Acute) Radiating back pain (Acute) Laceration (Acute) Contusion of right shoulder (Acute) Spasm of back muscles (Acute) Medical History Adenocarcinoma of endometrium Bronchitis Cervical cancer CKD stage 3 due to type 2 diabetes mellitus Kidney biopsy on 08/23/17. Community acquired pneumonia Dizziness Endometrial cancer 1 radiation treatment Erythema nodosum Fatigue Heart murmur, aortic Hyperlipidemia Localized edema due to fluid overload 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 Random urine total protein/creatinine ratio on 11/20/17: 4,170 mg/g creatinine. Obstructive sleep apnea hypopnea, mild Pancreatitis Peripheral neuropathy Bilateral lower extremity Retinal detachment Sarcoidosis Secondary hyperparathyroidism of renal origin Uterine cancer Vitamin D deficiency Surgical History History of cholecystectomy 04/2019 Sarah Andujar History of eye surgery (11/29/15) Bilateral laser History of eye surgery (~04/2016) 04/18 & 12/16 Left History of left cataract surgery History of tonsillectomy History of total abdominal hysterectomy (~1997) Family History Mother Hypertension Diabetes Grandmother Cancer Maternal Grandfather Hypertension Maternal Diabetes Maternal Stroke Paternal Family/Other Diabetes Social History Smoking Status: Never smoker Alcohol Intake Frequency: holiday/special occasion only Substance Use: does not use Exam Narrative Narrative: Narrative: Constitutional: normally developed, overall ill-appearing but nondistressed Head: Normocephalic, atraumatic, Eyes: No Icterus, ENT: Dry mucus membranes, Neck: Supple, Cardiac: Normal heart sounds, palpable radial pulses, Pulmonary: Normal respiratory effort. Breath sounds coarse but no wheeze, rhonchi, rales, Gastrointestinal: Abdomen soft, non-distended, non-tender, Musculoskeletal: No gross deformities, well perfused Skin: warm, dry Neuro: Alert and oriented. General Limitations: no limitations Course Vital Signs Vital signs: Vital Signs Temperature 37.0 C 01/06/21 20:12 Respiratory Rate 22 01/06/21 20:12 Blood Pressure 184/76 01/06/21 20:12 Pulse Oximetry (%) 84 L 01/06/21 20:12 Temperature 36.8 C 01/06/21 22:48 Pulse Rate 92 H 01/06/21 22:48 Respiratory Rate 24 H 01/06/21 22:48 Blood Pressure 161/80 01/06/21 22:48 Pulse Oximetry (%) 92 01/06/21 22:48 MDM MDM Narrative Medical decision making narrative: Narrative: Patient with 7 to 9 days of overall worsening symptoms found to have COVID-19 she is hypoxic requiring nasal cannula 1 to 2 L. No evidence of bacterial pneumonia, CBC unremarkable electrolytes show her baseline kidney function She is hyperglycemic 384 not in DKA. She was given some initial IV fluids and 3 units of subcutaneous insulin. She was given dexamethasone for her known COVID- 19 with hypoxia requiring oxygen Reevaluation she is feeling improved, stable on nasal cannula . I have spoken with Dr Hermosillo who accepts admission Lab Data Result diagrams: 01/06/21 20:39 01/06/21 20:57 Labs: Lab Results 01/06/21 01/06/21 01/06/21 Range/Units 20:39 20:57 20:57 WBC 5.2 (4.5-11.0) K/mcL RBC 4.26 (3.59-5.38) M/mcL Hgb 11.0 L (11.2-15.7) g/dL Hct 35.1 (34.1-44.9) % MCV 82.4 (80.0-100.0) fL MCH 25.8 L (26.0-34.0) pg MCHC 31.3 (31.0-36.0) g/dL RDW 14.6 H (11.5-14.5) % Plt Count 122 L (140-440) K/mcL MPV 12.4 H (7.4-10.4) fL Neut % (Auto) 77.8 (38.0-78.0) % Lymph % (Auto) 13.8 L (15.5-49.0) % [place] % (Auto) 8.2 (1.0-12.0) % Eos % (Auto) 0 (0.0-7.0) % Baso % (Auto) 0.2 (0.0-2.0) % Lymph # (Auto) 0.72 L (1.50-4.80) K/mcL [place] # (Auto) 0.43 (0.10-0.90) K/mcL Eos # (Auto) 0 (0.00-0.70) K/mcL Baso # (Auto) 0.01 (0.00-0.30) K/mcL Absolute Neutrophils 4.06 (1.80-8.00) K/mcL Sodium 135 (133-145) mmol/L Potassium 4.1 (3.3-5.1) mmol/L Chloride 96 (96-108) mmol/L Carbon Dioxide 26 (22-30) mmol/L Anion Gap 13.0 (8.0-16.0) BUN 54 H (6-20) mg/dL Creatinine 1.8 H (0.6-1.1) mg/dL GFR Calculation 31 Glucose 384 H (70-105) mg/dL Calcium 8.4 L (8.6-10.4) mg/dL Total Bilirubin 0.2 (0.1-1.0) mg/dL AST 19 (<32) U/L ALT 14 (<40) U/L Alkaline Phosphatase 97 (39-117) U/L Troponin T 0.01 (<0.03) ng/mL Total Protein 6.4 (5.9-8.4) gm/dL Albumin 2.9 L (3.2-5.2) gm/dL Globulin 3.5 (2.2-3.7) gm/dL Albumin/Globulin Ratio 0.8 L (1.0-2.3) Lipase 70 H (7-60) U/L ED POC Tests ED POC Tests: MALOU - Influenza A Negative MALOU - Influenza B Negative MALOU - SARS Antigen Positive Discharge Plan Patient/Caregiver Discharge Instructions Pt seen by MEDICAL INSURANCE CLAIMS PROCESSOR/PA only: No Clinical Impression: COVID Patient Disposition: Xfer As Inpt ([facility]) Condition: Fair Discharge Date/Time: 01/06/21 22:50
[2021-01-07 01:25] LABS: Estimated Average Glucose(eAG) 235 mg/dL; Hemoglobin A1C 9.8 % Hgb (4.0-6.0)
[2021-01-07 01:47] LABS: Ferritin 435.9 ng/mL (13.0-150.0)
[2021-01-07] MEDS: 0.9 % SODIUM CHLORIDE 10 ML SYRINGE IV SCH ×3 (04:01→21:27)
--- NOTE | 2021-01-07 05:47 | XRay Report ---
INDICATION: SOB, cough TECHNIQUE: AP portable upright chest x-ray COMPARISON: Previous chest x-rays dated 08/28/2018, 08/18/2018 FINDINGS: Lungs:Linear density at the right lung base consistent with atelectasis. Focal left basilar infiltrate. Appearance is consistent with pneumonia. Follow-up radiographs recommended. Heart, vascular:No significant cardiomegaly. Pulmonary vascularity is normal. No pulmonary edema or pulmonary congestion Mediastinum, aguila:No mediastinal widening. No hilar mass Pleura:No pleural fluid. No pleural-based mass or calcification Skeletal:Negative. IMPRESSION: 1. Left basilar infiltrate consistent with pneumonia 2. Right basilar atelectasis Interpreted and Authenticated by: Janusz Pereira 01/07/21
[2021-01-07] MEDS ORDERED: DICLOFENAC SODIUM TOPICAL PRN (06:03)
--- NOTE | 2021-01-07 06:46 | XRay Report ---
INDICATION: CoVID pneumonia TECHNIQUE: AP portable semiupright chest x-ray COMPARISON: Previous chest x-rays dated 01/06/2021, 08/28/2018 FINDINGS: Lungs:Persistent linear density at the right lung base consistent with atelectasis. Mild left basilar pulmonary parenchymal density remains present and is consistent with pneumonia. No new abnormalities. Heart, vascular:No significant cardiomegaly. Pulmonary vascularity is normal. No pulmonary edema or pulmonary congestion Mediastinum, aguila:No mediastinal widening. No hilar mass Pleura:No pleural fluid. No pleural-based mass or calcification Skeletal:Negative. IMPRESSION: 1. Left basilar infiltrate consistent with pneumonia 2. Right basilar atelectasis Interpreted and Authenticated by: Janusz Pereira 01/07/21
--- NOTE | 2021-01-07 07:42 | EKG ---
[facility] Test Date: 2021-01-06 Pat Name: Ashlie Reagan Department: ED Room: Gender: Female [employer] Service Technician: : 1965 Requested By: Cheng Pastrana Order Number: [id number] Reading MD: Marquise Andujar Measurements Intervals [place] Rate: 86 P: 53 SC: 152 QRS: -21 QRSD: 94 T: 98 QT: 372 QTc: 445 Interpretive Statements SINUS RHYTHM Electronically Signed On 01-07-2021 7:42:18 PDT by Marquise Andujar /store/[id number]
[2021-01-07] MEDS: INSULIN LISPRO 1 UNIT/0.01 ML UNIT SQ SCH ×4 (07:49→21:46)
[2021-01-07 08:36] LABS: Basophils # (Auto) 0.01 K/mcL (0.00-0.30); Basophils % (Auto) 0.2 % (0.0-2.0); Eosinophils # (Auto) 0 K/mcL (0.00-0.70); Eosinophils % (Auto) 0 % (0.0-7.0); Hematocrit 38.7 % (34.1-44.9); Hemoglobin 11.5 g/dL (11.2-15.7); Lymphocytes # (Auto) 0.89 K/mcL (1.50-4.80); Lymphocytes % (Auto) 20.1 % (15.5-49.0); Mean Cell Volume 85.1 fL (80.0-100.0); Mean Corpuscular HGB Conc 29.7 g/dL (31.0-36.0); Monocytes # (Auto) 0.24 K/mcL (0.10-0.90); Monocytes % (Auto) 5.4 % (1.0-12.0); Neutrophils % (Auto) 74.3 % (38.0-78.0); Platelet Count 134 K/mcL (140-440); RBC 4.55 M/mcL (3.59-5.38); Red Cell Distribution Width 14.5 % (11.5-14.5); WBC 4.4 K/mcL (4.5-11.0)
[2021-01-07] MEDS ORDERED: [UNRECOGNIZED DRUG - OTHER] SUB-Q SCH (09:00)
[2021-01-07] MEDS ORDERED: ENOXAPARIN 40 MG/0.4 ML SYRINGE SQ SCH (09:00)
[2021-01-07 09:08] LABS: ALT/SGPT 15 U/L (<40); AST/SGOT 18 U/L (<32); Albumin 2.8 gm/dL (3.2-5.2); Albumin/Globulin Ratio 0.8 (1.0-2.3); Alkaline Phosphatase 91 U/L (39-117); Bilirubin,Total 0.2 mg/dL (0.1-1.0); Blood Urea Nitrogen 52 mg/dL (6-20); Calcium 8.4 mg/dL (8.6-10.4); Carbon Dioxide 25 mmol/L (22-30); Chloride 101 mmol/L (96-108); Globulin 3.7 gm/dL (2.2-3.7); Glomerular Filtration Rate 31; Glucose 266 mg/dL (70-105)
[2021-01-07] MEDS: DEXAMETHASONE 4 MG TABLET PO SCH (09:17)
[2021-01-07] MEDS: PREGABALIN 150 MG CAPSULE PO SCH ×2 (09:17→21:48)
[2021-01-07] MEDS: amLODIPine 5 MG TABLET PO SCH (09:17)
[2021-01-07] MEDS: DOCUSATE SODIUM 100 MG CAPSULE PO SCH ×2 (09:17→21:48)
[2021-01-07] MEDS: CHLORTHALIDONE 25 MG TABLET PO SCH (09:17)
[2021-01-07] MEDS: VITAMIN D3 1,000 UNIT TABLET PO SCH (09:17)
[2021-01-07] MEDS: ATORVASTATIN 20 MG TABLET PO SCH (09:17)
[2021-01-07] MEDS: TORSEMIDE 20 MG TABLET PO SCH (09:18)
[2021-01-07] MEDS: HEPARIN 5,000 UNIT/ML VIAL SQ SCH ×2 (09:18→21:48)
[2021-01-07] MEDS: SPIRONOLACTONE 25 MG TABLET PO SCH (09:19)
--- NOTE | 2021-01-07 11:39 | Internal Med Progress Note ---
SUBJECTIVE Subjective Patient information: Note initiated : 01/07/21 at 11:37 am Service Date, if different from initiated Date: [] Patient: Ashlie Reagan 55 y/o F admitted on 01/06/21 for weakness/nvd. Chief Complaint: [CoVID pneumonia] Interval history: History of present illness: Ms. Reagan is a 55 year old F woman history of type 2 diabetes mellitus, essential hypertension's, mixed dyslipidemia, chronic kidney disease, presenting with 9-day history of shortness of breath, productive cough with red sputum, nausea and vomiting, diarrhea, and shaking chills. There was no prior similar episode. She is an vaccinated against Covid pneumonia. Over the past 9 days, she is experiencing shortness of breath, productive cough with red sputum, nausea and vomiting, diarrhea, and shaking chills. She denies respiratory wheezings. She denies any chest pain or abdominal pain. She denies any subjective fever or diaphoresis. She denies muscle cramps. Upon ED presentations, vital signs significant with oxygen saturations in the mid 80s on room air with rest of the vital signs within normal limits. Labs significant with lack of leukocytosis with WBC 5.2. Serum creatinine level 1.8. Serum glucose level 384. Chest x-ray showing bilateral patchy infiltrates consistent with Covid pneumonia. 01/07: Afebrile overnight. Currently on room air. Blood culture no growth to date. Denies SOB. Denies cough or sputum production. Denies wheezing. Denies chest pain. Denies fever, chills, or sweating. Denies diarrhea. Constitutional Vitals: Vital Signs Temp Pulse Resp BP Pulse Ox 36.4 C 72 20 160/86 94 01/07/21 07:21 01/07/21 03:52 01/07/21 07:21 01/07/21 07:21 01/07/21 07:21 Period Temp Pulse Resp BP Sys/[place] Pulse Ox Last 24 Hr 36.4 C-37.1 C 72-92 20-24 133-206/64-95 84-97 Intake and Output 01/06/21 01/07/21 01/07/21 21:59 05:59 13:59 Intake Total 1970 Output Total 625 Balance 1345 Weight 104.326 kg 105.404 kg Intake & Output: Intake & Output 01/06/21 01/07/21 01/07/21 21:59 05:59 13:59 Intake Total 1970 Output Total 625 Balance 1345 Weight 104.326 kg 105.404 kg Intake: IV 1250 Lactated Ringers 1,000 ml @ 1000 Wide Open IV BOLUS ONE Rx#: [id number] Veklury 200 mg In Sodium 250 Chloride 0.9% 250 ml @ 500 mls/ hr IV ONCE ONE Rx#:[id number] Oral 720 Output: Void Amount 625 Other: Urine Appearance Clear Urine Color Bright Yellow Urine Odor Normal General appearance: cooperative and no acute distress Head Head exam: Present atraumatic and normocephalic Eye Eye exam: Present EOMI and PERRL ENT ENT exam: Present mucous membranes moist, normal exam and normal external ear exam Neck Neck exam: Present normal inspection; Absent lymphadenopathy, tenderness and thyromegaly Respiratory Respiratory exam: Absent accessory muscle use, respiratory distress and wheezes Cardiovascular Cardiovascular exam: Present normal rate and rhythm; Absent JVD GI/Abdominal GI/Abdominal exam: Present normal bowel sounds and soft; Absent organomegaly and tenderness Extremities Exam Extremities exam: Present full ROM, normal capillary refill and normal inspection; Absent tenderness Neurological Exam Neurological exam: Present alert, CN II-XII intact and oriented X3; Absent motor sensory deficit Psychiatric Psychiatric exam: Present normal affect and normal mood; Absent anxious and depressed Skin Skin exam: Present dry and intact OBJ DATA Labs CBC & Chem 7: 01/07/21 06:00 01/07/21 06:00 Labs: Abnormal Lab Results 01/07/21 01/07/21 01/06/21 06:00 06:00 23:45 WBC 4.4 L Hgb MCH 25.3 L MCHC 29.7 L RDW Plt Count 134 L MPV 13.0 H Lymph % (Auto) Lymph # (Auto) 0.89 L Fibrinogen D-Dimer BUN 52 H Creatinine 1.8 H Glucose 266 H Hemoglobin A1c 9.8 H Calcium 8.4 L Ferritin 435.9 H C-Reactive Protein 6.40 H Albumin 2.8 L Albumin/Globulin Ratio 0.8 L Lipase Procalcitonin 01/06/21 01/06/21 01/06/21 23:35 23:35 20:57 WBC Hgb MCH MCHC RDW Plt Count MPV Lymph % (Auto) Lymph # (Auto) Fibrinogen 594 H D-Dimer 1.36 H BUN 54 H Creatinine 1.8 H Glucose 384 H Hemoglobin A1c Calcium 8.4 L Ferritin C-Reactive Protein Albumin 2.9 L Albumin/Globulin Ratio 0.8 L Lipase 70 H Procalcitonin 0.10 H 01/06/21 20:39 WBC Hgb 11.0 L MCH 25.8 L MCHC RDW 14.6 H Plt Count 122 L MPV 12.4 H Lymph % (Auto) 13.8 L Lymph # (Auto) 0.72 L Fibrinogen D-Dimer BUN Creatinine Glucose Hemoglobin A1c Calcium Ferritin C-Reactive Protein Albumin Albumin/Globulin Ratio Lipase Procalcitonin Meds: Medications Acetaminophen (Acetaminophen 325 Mg Tablet) 650 mg PO Q6HP PRN; Protocol PRN Reason: Per Pain Protocol/Fever > 101 Albuterol/Ipratropium (Ipratropium/Albuterol 3 Ml Ampul.Neb) 3 ml NEB Q4HRT PRN PRN Reason: Wheezing Amlodipine Besylate (Amlodipine 5 Mg Tablet) 5 mg PO DAILY [facility] Last Admin: 01/07/21 09:17 Dose: 5 mg Documented by: Atorvastatin Calcium (Atorvastatin 20 Mg Tablet) 20 mg PO DAILY [facility] Last Admin: 01/07/21 09:17 Dose: 20 mg Documented by: Chlorthalidone (Chlorthalidone 25 Mg Tablet) 25 mg PO DAILY [facility] Last Admin: 01/07/21 09:17 Dose: 25 mg Documented by: Dexamethasone (Dexamethasone 4 Mg Tablet) 6 mg PO DAILY [facility] Last Admin: 01/07/21 09:17 Dose: 6 mg Documented by: Dextrose (Dextrose 50% 50 Ml Vial) 0 ml IV UD PRN PRN Reason: Hypoglycemia Diagnostic Test (Pha) (Accu-Chek 1 Each Strip) 1 each FS ACHS [facility] Last Admin: 01/07/21 07:50 Dose: 1 each Documented by: Docusate Sodium (Docusate Sodium 100 Mg Capsule) 100 mg PO BID [facility] Last Admin: 01/07/21 09:17 Dose: 100 mg Documented by: Glucose (Dextrose 31 Gm Oral.Susp) 15 gm PO PRN PRN PRN Reason: Hypoglycemia Guaifenesin (Guaifenesin/Dextromethorphan Oral Kacie) 10 ml PO Q4HP PRN PRN Reason: Cough Heparin Sodium (Porcine) (Heparin 5,000 Unit/Ml Vial) 5,000 unit SQ Q12 [facility] Last Admin: 01/07/21 09:18 Dose: 5,000 unit Documented by: Hydralazine HCl (Hydralazine 20 Mg/Ml Vial) 10 mg IV Q4-6HP PRN PRN Reason: Hypertension REMDESIVIR 100 mg/ Sodium (Chloride) 250 mls @ 500 mls/hr IV Q24H [facility] Stop: 01/10/21 14:29 Insulin Glargine (Insulin Glargine, Human 1 Unit/0.01 Ml) 30 unit SQ DAILY [facility] Insulin Human Lispro (Insulin Lispro 1 Unit/0.01 Ml Unit) 0 unit SQ ACHS [facility]; Protocol Last Admin: 01/07/21 07:49 Dose: 12 unit Documented by: Loperamide HCl (Loperamide 2 Mg Capsule) 2 mg PO PRN PRN PRN Reason: Diarrhea Methocarbamol (Methocarbamol 750 Mg Tablet) 750 mg PO QID PRN PRN Reason: Back muscle spasms Ondansetron HCl (Ondansetron 4 Mg/2 Ml Vial) 4 mg IV Q6HP PRN PRN Reason: Nausea And Vomiting Diclofenac Sodium (Top Oint) 2 dose TOPICAL QIDP PRN PRN Reason: Low back pain Pregabalin (Pregabalin 150 Mg Capsule) 150 mg PO BID [facility] Last Admin: 01/07/21 09:17 Dose: 150 mg Documented by: Senna (Sennosides 1 Tablet) 2 tab PO HS [facility] Sodium Chloride (0.9 % Sodium Chloride 10 Ml Syringe) 10 ml IV Q8 [facility] Last Admin: 01/07/21 04:01 Dose: 10 ml Documented by: Spironolactone (Spironolactone 25 Mg Tablet) 25 mg PO DAILY [facility] Last Admin: 01/07/21 09:19 Dose: 25 mg Documented by: Torsemide (Torsemide 20 Mg Tablet) 40 mg PO QDAY [facility] Last Admin: 01/07/21 09:18 Dose: 40 mg Documented by: Vitamin D (Vitamin D3 1,000 Unit Tablet) 4,000 unit PO DAILY [facility] Last Admin: 01/07/21 09:17 Dose: 4,000 unit Documented by: A/P Assessment and plan (1) Hyperlipidemia: Status: Chronic (2) Anemia in stage 4 chronic kidney disease: Status: Chronic (3) Hypertension in stage 4 chronic kidney disease due to type 2 diabetes mellitus: Status: Chronic (4) Morbid obesity: Status: Acute (5) Pneumonia due to COVID-19 virus: Status: Acute (6) Acute respiratory failure with hypoxia: Status: Acute Narrative A/P Narrative: Assessment and plan: #1 Covid pneumonia with associated acute respiratory failure with hypoxia: [facility] Isolations protocol: Airborne and contact Serial lactic acid Procalcitonin Blood culture Inflammatory markers CBC with auto differential in the morning to trend WBC Chest x-ray Remdesivir Dexamethasone Lovenox Tylenol as needed fever Robitussin-DM as needed cough DuoNeb nebulizer as needed wheezing Supplemental oxygen therapy titrate to achieve spo2 >=92%, currently on room air #2 type 2 diabetes mellitus: Hemoglobin A1c Hold any oral hypoglycemics Continue scheduled long-acting insulin regimen from home Correctional scale insulin AC at bedtime Accu-Chek AC HS Hypoglycemia protocol Diabetic diet 3. Essential hypertension's: Currently hypotensive Continue amlodipine, diuretics, and spironolactone from home Hydralazine 10 mg IV every 4-6 hours as needed SBP greater than or equal to 180 mmHg and diastolic blood pressure greater than or equal to 110 mmHg 4. History of mixed dyslipidemia: Continue statin therapy 5. Anemia associated with chronic kidney disease stage IV: Avoid nephrotoxic agent Saline lock CMP in the morning to trend kidney functions CBC with auto differential in the morning to trend H&H and transfuse PRBC if hemoglobin less than 7.0, active bleeding, or if the patient becomes symptomatic 6. Morbid obesity: Counseled patient on lifestyle modifications including healthy diet and regular exercise in order to lose weight GI prophylaxis: Not currently indicated DVT prophylaxis: Heparin CODE STATUS: DO NOT INTUBATE Prognosis: Stable Dispositions: [facility] Time Spent With Patient Time: Total time spent is greater than 50% in coordination of care (as documented) at patient's floor/unit and/or counseling patient:
[2021-01-07] MEDS: INSULIN GLARGINE, HUMAN 1 UNIT/0.01 ML SQ SCH (12:03)
[2021-01-07] MEDS ORDERED: REMDESIVIR 100 MG in 0.9 % SODIUM CHLORIDE 250 ML IV SCH (14:00)
[2021-01-07] MEDS ORDERED: SENNOSIDES 1 TABLET PO SCH (21:00)
[2021-01-08] MEDS: INSULIN LISPRO 1 UNIT/0.01 ML UNIT SQ SCH ×4 (01:00→12:00)
[2021-01-08] MEDS: 0.9 % SODIUM CHLORIDE 10 ML SYRINGE IV SCH (06:04)
[2021-01-08 08:18] LABS: Basophils # (Auto) 0 K/mcL (0.00-0.30); Basophils % (Auto) 0 % (0.0-2.0); Eosinophils # (Auto) 0 K/mcL (0.00-0.70); Eosinophils % (Auto) 0 % (0.0-7.0); Hematocrit 36.8 % (34.1-44.9); Hemoglobin 11.1 g/dL (11.2-15.7); Lymphocytes # (Auto) 1.15 K/mcL (1.50-4.80); Lymphocytes % (Auto) 19.5 % (15.5-49.0); Mean Corpuscular HGB Conc 30.2 g/dL (31.0-36.0); Mean Platelet Volume 13.2 fL (7.4-10.4); Monocytes # (Auto) 0.52 K/mcL (0.10-0.90); Monocytes % (Auto) 8.8 % (1.0-12.0); Neutrophils % (Auto) 71.7 % (38.0-78.0); RBC 4.38 M/mcL (3.59-5.38); Red Cell Distribution Width 14.3 % (11.5-14.5); WBC 5.9 K/mcL (4.5-11.0)
--- NOTE | 2021-01-08 08:22 | XRay Report ---
INDICATION: CoVID pneumonia TECHNIQUE: AP portable upright chest x-ray COMPARISON: Previous examinations dated 01/07/2021, 01/06/2021 FINDINGS: Lungs:Mild left basilar infiltrate again demonstrated. Linear density at the right lung base. Appearance is essentially stable since 01/07/2021. No new abnormality. Heart, vascular:No significant cardiomegaly. Pulmonary vascularity is normal. No pulmonary edema or pulmonary congestion Mediastinum, aguila:No mediastinal widening. No hilar mass Pleura:No pleural fluid. No pleural-based mass or calcification Skeletal:Negative. IMPRESSION: 1. Mild left basilar infiltrate 2. No significant interval change Interpreted and Authenticated by: Janusz Pereira 01/08/21
[2021-01-08 08:23] LABS: ALT/SGPT 20 U/L (<40); AST/SGOT 26 U/L (<32); Albumin 2.7 gm/dL (3.2-5.2); Albumin/Globulin Ratio 0.8 (1.0-2.3); Alkaline Phosphatase 85 U/L (39-117); Bilirubin,Total < 0.2 mg/dL (0.1-1.0); Blood Urea Nitrogen 61 mg/dL (6-20); Calcium 8.9 mg/dL (8.6-10.4); Carbon Dioxide 27 mmol/L (22-30); Chloride 100 mmol/L (96-108); Globulin 3.3 gm/dL (2.2-3.7); Glomerular Filtration Rate 24; Glucose 158 mg/dL (70-105)
[2021-01-08] MEDS: INSULIN GLARGINE, HUMAN 1 UNIT/0.01 ML SQ SCH (08:23)
[2021-01-08] MEDS: DEXAMETHASONE 4 MG TABLET PO SCH (08:24)
[2021-01-08] MEDS: ATORVASTATIN 20 MG TABLET PO SCH (08:24)
[2021-01-08] MEDS: TORSEMIDE 20 MG TABLET PO SCH (08:24)
[2021-01-08] MEDS: CHLORTHALIDONE 25 MG TABLET PO SCH (08:24)
[2021-01-08] MEDS: HEPARIN 5,000 UNIT/ML VIAL SQ SCH (08:24)
[2021-01-08] MEDS: VITAMIN D3 1,000 UNIT TABLET PO SCH (08:24)
[2021-01-08] MEDS: SPIRONOLACTONE 25 MG TABLET PO SCH (08:25)
[2021-01-08] MEDS: amLODIPine 5 MG TABLET PO SCH (08:25)
[2021-01-08] MEDS: PREGABALIN 150 MG CAPSULE PO SCH (08:25)
[2021-01-08] MEDS: DOCUSATE SODIUM 100 MG CAPSULE PO SCH (08:25)
[2021-01-08 08:49] LABS: Platelet Count 150 K/mcL (140-440)
--- NOTE | 2021-01-08 11:23 | Discharge Summary ---
Discharge Provider Provider Patient information: Note initiated : 01/08/21 at 11:20 am Service Date, if different from initiated Date: [] Patient: Ashlie Reagan 55 y/o F admitted on 01/06/21 for weakness/nvd. Chief Complaint: [CoVID pneumonia] History of present illness: Ms. Reagan is a 55 year old F woman history of type 2 diabetes mellitus, essential hypertension's, mixed dyslipidemia, chronic kidney disease, presenting with 9-day history of shortness of breath, productive cough with red sputum, nausea and vomiting, diarrhea, and shaking chills. There was no prior similar episode. She is an vaccinated against Covid pneumonia. Over the past 9 days, she is experiencing shortness of breath, productive cough with red sputum, nausea and vomiting, diarrhea, and shaking chills. She denies respiratory wheezings. She denies any chest pain or abdominal pain. She denies any subjective fever or diaphoresis. She denies muscle cramps. Upon ED presentations, vital signs significant with oxygen saturations in the mid 80s on room air with rest of the vital signs within normal limits. Labs significant with lack of leukocytosis with WBC 5.2. Serum creatinine level 1.8. Serum glucose level 384. Chest x-ray showing bilateral patchy infiltrates consistent with Covid pneumonia. Date of admission: 01/06/21 22:48 Discharge date: 01/08/21 Primary care physician: Luis Barnes MD Consults: 01/06/21 Consult to Physician [CONS] Stat Comment: Consulting Provider: Duncan Hermosillo Reason For Exam: Physician to Consult Discharge Meds Discharge Medications Home Medications albuterol sulfate 90 mcg/actuation aerosol inhaler 2 puff INHALATION QID PRN g 07/10/17 [History Confirmed 01/06/21 Last Taken Unknown] cholecalciferol (vitamin D3) 50 mcg (2,000 unit) capsule 4,000 unit PO DAILY #60 cap 01/01/20 [Rx Confirmed 01/06/21 Last Taken Unknown] diclofenac sodium 1 % topical gel 2 g TOPICAL QID PRN #100 g 08/26/20 [Rx Confirmed 01/06/21 Last Taken Unknown] insulin degludec 100 unit-liraglutide 3.6 mg/mL(3 mL) subcutaneous pen 30 unit SUB-Q QDAY #15 ml 09/13/20 [Rx Confirmed 01/06/21 Last Taken 12/28/20] amlodipine 5 mg tablet See Rx Instructions .ROUTE .COMPLEX #30 tab 10/05/20 [Rx Confirmed 01/06/21 Last Taken 12/27/20] atorvastatin 20 mg tablet See Rx Instructions .ROUTE .COMPLEX #30 tab 10/05/20 [Rx Confirmed 01/06/21 Last Taken Unknown] chlorthalidone 25 mg tablet See Rx Instructions .ROUTE .COMPLEX #30 tab 10/05/20 [Rx Confirmed 01/07/21 Last Taken Unknown] spironolactone 25 mg tablet See Rx Instructions .ROUTE .COMPLEX #30 tab 10/05/20 [Rx Confirmed 01/07/21 Last Taken 12/28/20] torsemide 10 mg tablet 40 mg PO QDAY #360 tab 10/11/20 [Rx Confirmed 01/07/21 Last Taken 12/28/20] pregabalin 150 mg capsule 150 mg PO BID #60 cap 11/02/20 [Rx Confirmed 01/06/21 Last Taken 12/28/20] dextromethorphan-guaifenesin [Robafen DM Cough] 10 ml PO Q4HP PRN #500 ml 01/08/21 [Rx Last Taken Unknown] COURSE Hospital Course Hospital course: History of present illness: Ms. Reagan is a 55 year old F woman history of type 2 diabetes mellitus, essential hypertension's, mixed dyslipidemia, chronic kidney disease, presenting with 9-day history of shortness of breath, productive cough with red sputum, nausea and vomiting, diarrhea, and shaking chills. There was no prior similar episode. She is an vaccinated against Covid pneumonia. Over the past 9 days, she is experiencing shortness of breath, productive cough with red sputum, nausea and vomiting, diarrhea, and shaking chills. She denies respiratory wheezings. She denies any chest pain or abdominal pain. She denies any subjective fever or diaphoresis. She denies muscle cramps. Upon ED presentations, vital signs significant with oxygen saturations in the mid 80s on room air with rest of the vital signs within normal limits. Labs significant with lack of leukocytosis with WBC 5.2. Serum creatinine level 1.8. Serum glucose level 384. Chest x-ray showing bilateral patchy infiltrates consistent with Covid pneumonia. Discharge diagnosis: CoVID pneumonia Time Spent with Patient Time attestation: Total time spent providing and/or coordinating discharge services: Patient was admitted on December for Covid pneumonia. Supplemental oxygen therapy, remdesivir, dexamethasone, anticoagulation in terms of Lovenox were all provided as part of distended Covid management. By January 08, 2021, patient was able to tolerate room air, been afebrile for more than 24 hours, any leukocytosis resolved, and otherwise reached clinical stability. As such, the decision was made to discharge patient home with instructions to follow-up with PCP within 2 weeks. All questions were answered prior to patient being physically discharged. EXAM Constitutional Vitals: Temp Pulse Resp BP Pulse Ox 36.4 C 58 L 16 104/65 94 01/08/21 07:24 01/08/21 07:24 01/08/21 07:24 01/08/21 07:24 01/08/21 07:24 General appearance: cooperative and no acute distress Head Head exam: Present atraumatic and normocephalic Eye Eye exam: Present EOMI and PERRL ENT ENT exam: Present mucous membranes moist, normal exam and normal external ear exam Neck Neck exam: Present normal inspection; Absent lymphadenopathy, tenderness and thyromegaly Respiratory Respiratory exam: Absent accessory muscle use, respiratory distress and wheezes Cardiovascular Cardiovascular exam: Present normal rate and rhythm; Absent JVD GI/Abdominal GI/Abdominal exam: Present normal bowel sounds and soft; Absent organomegaly and tenderness Extremities Exam Extremities exam: Present full ROM, normal capillary refill and normal inspection; Absent tenderness Neurological Exam Neurological exam: Present alert, CN II-XII intact and oriented X3; Absent motor sensory deficit Psychiatric Psychiatric exam: Present normal affect and normal mood; Absent anxious and depressed Skin Skin exam: Present dry and intact Discharge Data Data Completed and Pending Labs on day of discharge: Labs from last 24 hours 01/08/21 01/08/21 05:50 05:50 WBC 5.9 RBC 4.38 Hgb 11.1 L Hct 36.8 MCV 84.0 MCH 25.3 L MCHC 30.2 L RDW 14.3 Plt Count 150 MPV 13.2 H Neut % (Auto) 71.7 Lymph % (Auto) 19.5 [place] % (Auto) 8.8 Eos % (Auto) 0 Baso % (Auto) 0 Lymph # (Auto) 1.15 L [place] # (Auto) 0.52 Eos # (Auto) 0 Baso # (Auto) 0 Absolute Neutrophils 4.24 Sodium 139 Potassium 3.4 Chloride 100 Carbon Dioxide 27 Anion Gap 12.0 BUN 61 H Creatinine 2.2 H GFR Calculation 24 Glucose 158 H Calcium 8.9 Magnesium 2.4 Total Bilirubin < 0.2 AST 26 ALT 20 Alkaline Phosphatase 85 Total Protein 6.0 Albumin 2.7 L Globulin 3.3 Albumin/Globulin Ratio 0.8 L Preliminary micro results at discharge 01/06/21 23:45 Blood Culture - Preliminary Blood 01/06/21 23:35 Blood Culture - Preliminary Blood Discharge Plan Patient/Caregiver Discharge Instructions Activity: increase activity as tolerated Diet: Consistent Carbohydrate Prescriptions: New dextromethorphan-guaifenesin [Robafen DM Cough] 10-100 mg/5 mL Liquid 10 ml PO Q4HP PRN (Reason: Cough) Qty: 500 RF: 0 Continued cholecalciferol (vitamin D3) 50 mcg (2,000 unit) capsule 4,000 unit PO DAILY Qty: 60 RF: 3 Xultophy 100/3.6 100 unit-3.6 mg /mL (3 mL) insulin pen 30 unit SUB-Q QDAY Qty: 15 RF: 5 amlodipine 5 mg tablet See Rx Instructions .ROUTE .COMPLEX Qty: 30 RF: 6 spironolactone 25 mg tablet See Rx Instructions .ROUTE .COMPLEX Qty: 30 RF: 6 chlorthalidone 25 mg tablet See Rx Instructions .ROUTE .COMPLEX Qty: 30 RF: 6 atorvastatin 20 mg tablet See Rx Instructions .ROUTE .COMPLEX Qty: 30 RF: 6 torsemide 10 mg tablet 40 mg PO QDAY Qty: 360 RF: 4 pregabalin [Lyrica] 150 mg capsule 150 mg PO BID Qty: 60 RF: 5 albuterol sulfate [ProAir HFA] 90 mcg/actuation HFA aerosol inhaler 2 puff INHALATION QID PRN (Reason: Shortness Of Breath) RF: 0 diclofenac sodium [Arthritis Pain (diclofenac)] 1 % gel 2 g topical QID PRN (Reason: Low back pain) Qty: 100 RF: 4 Follow Up Plan Follow up with: Luis Barnes MD [Primary Care Provider] - Patient Disposition: Home, Self-Care Prognosis: Fair Rehab Potential: Good I certify that the patient requires SNF services: No Overall status at discharge: patient is back to baseline Discharge Orders: Discharge Order (Routine); Ordered 01/08/21 Ordered By: Duncan Hermosillo
== END 2021-01-08 13:30 | disposition home or self-care (01) | DRG 177 ==
LOC: ED 20:09 → MEDSUR 22:48
PROVIDERS: ADMIT Internal Medicine; ATTEND Internal Medicine

== ENCOUNTER 2023-11-08 15:51 | Inpatient (IN) ==
[2023-11-08 17:46] LABS: ALT/SGPT < 5 U/L (0-40); AST/SGOT 18 U/L (<32); Albumin 3.3 gm/dL (3.2-5.2); Albumin/Globulin Ratio 1.2 (1.0-2.3); Alkaline Phosphatase 88 U/L (39-117); Bilirubin,Total 0.4 mg/dL (0.1-1.0); Blood Urea Nitrogen 59 mg/dL (6-20); Calcium 8.5 mg/dL (8.6-10.4); Carbon Dioxide 31 mmol/L (22-30); Chloride 103 mmol/L (96-108); Globulin 2.8 gm/dL (2.2-3.7); Glomerular Filtration Rate 16; Glucose 193 mg/dL (70-105); Potassium 4.9 mmol/L (3.3-5.1); Sodium 144 mmol/L (133-145)
[2023-11-08 18:02] LABS: Basophils # (Auto) 0.04 K/mcL (0.00-0.30); Basophils % (Auto) 0.7 % (0.0-2.0); Eosinophils # (Auto) 0.25 K/mcL (0.00-0.70); Eosinophils % (Auto) 4.5 % (0.0-7.0); Hematocrit 42.6 % (34.1-44.9); Hemoglobin 11.4 g/dL (11.2-15.7); Lymphocytes % (Auto) 17.9 % (15.5-49.0); Mean Corpuscular HGB Conc 26.8 g/dL (31.0-36.0); Monocytes % (Auto) 10.7 % (1.0-12.0); Platelet Count 119 K/mcL (140-440); RBC 5.68 M/mcL (3.59-5.38); Red Cell Distribution Width 18.6 % (11.5-14.5); WBC 5.6 K/mcL (4.5-11.0)
[2023-11-08 18:35] LABS: Appearance,Urine Clear (Clear); Bacteria,Urine Many /hpf (0); Bilirubin,Urine Negative (Negative); Color,Urine Yellow; Culture Indicated,Urine Yes; Glucose,Urine (UA) Negative (Negative); Ketones,Urine Negative (Negative); Leukocyte Esterase,Urine Negative /uL (Negative); Nitrate,Urine Negative (Negative); Protein,Urine >=300 mg/dL (Negative); Specific Gravity,Urine 1.015 (1.000-1.035); Urine Blood Trace-lysed ery/mcL (Negative); Urine RBC 3 /hpf (0-3); Urine Squamous Epithelial Cell 3 /hpf (0-4); Urine WBC 6 /hpf (0-4); Urobilinogen,Urine Normal
[2023-11-08] MEDS: FUROSEMIDE 100 MG/10 ML VIAL IV ONE (20:15)
[2023-11-08] MEDS ORDERED: IPRATROPIUM/ALBUTEROL 3 ML AMPUL.NEB NEB PRN (22:57)
[2023-11-08] MEDS ORDERED: traZODone HCL 50 MG TABLET PO PRN (22:57)
[2023-11-08] MEDS ORDERED: ONDANSETRON 4 MG/2 ML VIAL IV PRN (22:57)
[2023-11-08] MEDS ORDERED: DEXTROSE 31 GM ORAL.SUSP PO PRN (22:57)
[2023-11-08] MEDS ORDERED: ACETAMINOPHEN 325 MG TABLET PO PRN (22:57)
[2023-11-08] MEDS ORDERED: DEXTROSE 50% 50 ML VIAL IV PRN (22:57)
[2023-11-09] MEDS: FUROSEMIDE 40 MG/4 ML VIAL IV SCH (04:57)
[2023-11-09] MEDS: FUROSEMIDE 40 MG/4 ML VIAL IV ONE (04:57)
[2023-11-09] MEDS: 0.9 % SODIUM CHLORIDE 10 ML SYRINGE IV SCH (04:58)
[2023-11-09 07:12] LABS: Basophils # (Auto) 0.05 K/mcL (0.00-0.30); Basophils % (Auto) 1.1 % (0.0-2.0); Eosinophils # (Auto) 0.25 K/mcL (0.00-0.70); Eosinophils % (Auto) 5.7 % (0.0-7.0); Hematocrit 40.1 % (34.1-44.9); Hemoglobin 10.8 g/dL (11.2-15.7); Lymphocytes # (Auto) 1.17 K/mcL (1.50-4.80); Lymphocytes % (Auto) 26.9 % (15.5-49.0); Mean Cell Volume 76.5 fL (80.0-100.0); Mean Corpuscular HGB Conc 26.9 g/dL (31.0-36.0); Monocytes # (Auto) 0.62 K/mcL (0.10-0.90); Monocytes % (Auto) 14.3 % (1.0-12.0); Platelet Count 105 K/mcL (140-440); RBC 5.24 M/mcL (3.59-5.38); Red Cell Distribution Width 17.9 % (11.5-14.5); WBC 4.4 K/mcL (4.5-11.0)
[2023-11-09] MEDS: INSULIN LISPRO 1 UNIT/0.01 ML UNIT SQ SCH ×2 (07:16→09:45)
[2023-11-09 07:32] LABS: ALT/SGPT 5 U/L (<40); AST/SGOT 20 U/L (<32); Albumin 2.9 gm/dL (3.2-5.2); Albumin/Globulin Ratio 1.1 (1.0-2.3); Alkaline Phosphatase 77 U/L (39-117); Bilirubin,Total 0.4 mg/dL (0.1-1.0); Blood Urea Nitrogen 54 mg/dL (6-20); Calcium 8.3 mg/dL (8.6-10.4); Carbon Dioxide 29 mmol/L (22-30); Chloride 104 mmol/L (96-108); Globulin 2.6 gm/dL (2.2-3.7); Glomerular Filtration Rate 18; Glucose 63 mg/dL (70-105); Potassium 4.4 mmol/L (3.3-5.1); Sodium 143 mmol/L (133-145)
[2023-11-09] MEDS: LISINOPRIL 5 MG TABLET PO SCH (08:07)
[2023-11-09] MEDS: POTASSIUM CHLORIDE 20 MEQ TABLET PO SCH (08:08)
[2023-11-09] MEDS: DOCUSATE SODIUM 100 MG CAPSULE PO SCH (08:08)
[2023-11-09] MEDS: HEPARIN 5,000 UNIT/ML VIAL SQ SCH ×2 (08:17→14:24)
[2023-11-09] MEDS ORDERED: NITROGLYCERIN 0.4 MG TAB.SUBL SL PRN (08:33)
[2023-11-09] MEDS: CARVEDILOL 12.5 MG TABLET PO SCH (09:05)
[2023-11-09] MEDS: PREGABALIN 150 MG CAPSULE PO SCH (09:07)
[2023-11-09] MEDS: ASPIRIN 81 MG TAB.CHEW PO SCH (09:07)
[2023-11-09] MEDS: hydrALAZINE 10 MG TABLET PO SCH (09:07)
[2023-11-09] MEDS: EZETIMIBE 10 MG TABLET PO SCH (09:07)
[2023-11-09] MEDS: INSULIN GLARGINE, HUMAN 1 UNIT/0.01 ML SQ SCH (09:08)
[2023-11-09 10:17] LABS: Estimated Average Glucose(eAG) 252 mg/dL; Hemoglobin A1C 10.4 % Hgb (4.0-6.0)
[2023-11-09] MEDS: SENNOSIDES 1 TABLET PO SCH (20:35)
[2023-11-09] MEDS: ATORVASTATIN 40 MG TABLET PO SCH (20:35)
[2023-11-10 07:16] LABS: Basophils # (Auto) 0.04 K/mcL (0.00-0.30); Basophils % (Auto) 0.7 % (0.0-2.0); Eosinophils # (Auto) 0.21 K/mcL (0.00-0.70); Eosinophils % (Auto) 3.9 % (0.0-7.0); Hemoglobin 10.4 g/dL (11.2-15.7); Lymphocytes # (Auto) 1.15 K/mcL (1.50-4.80); Lymphocytes % (Auto) 21.5 % (15.5-49.0); Mean Cell Volume 77.5 fL (80.0-100.0); Mean Corpuscular HGB Conc 26.7 g/dL (31.0-36.0); Monocytes # (Auto) 0.79 K/mcL (0.10-0.90); Monocytes % (Auto) 14.7 % (1.0-12.0); Neutrophils % (Auto) 59.2 % (38.0-78.0); Platelet Count 119 K/mcL (140-440); RBC 5.03 M/mcL (3.59-5.38); WBC 5.4 K/mcL (4.5-11.0)
[2023-11-10 07:29] LABS: ALT/SGPT < 5 U/L (<40); AST/SGOT 14 U/L (<32); Albumin 2.9 gm/dL (3.2-5.2); Albumin/Globulin Ratio 1.2 (1.0-2.3); Alkaline Phosphatase 72 U/L (39-117); Bilirubin,Total 0.4 mg/dL (0.1-1.0); Blood Urea Nitrogen 50 mg/dL (6-20); Calcium 8.2 mg/dL (8.6-10.4); Carbon Dioxide 34 mmol/L (22-30); Chloride 105 mmol/L (96-108); Globulin 2.5 gm/dL (2.2-3.7); Glomerular Filtration Rate 18; Glucose 133 mg/dL (70-105); Potassium 4.9 mmol/L (3.3-5.1); Sodium 144 mmol/L (133-145)
[2023-11-10] MEDS: cefTRIAXone 1 GM VIAL IV SCH (14:26)
[2023-11-11 07:02] LABS: Basophils # (Auto) 0.04 K/mcL (0.00-0.30); Basophils % (Auto) 0.8 % (0.0-2.0); Eosinophils # (Auto) 0.19 K/mcL (0.00-0.70); Hematocrit 37.6 % (34.1-44.9); Lymphocytes # (Auto) 1.16 K/mcL (1.50-4.80); Lymphocytes % (Auto) 24.4 % (15.5-49.0); Mean Cell Volume 77.7 fL (80.0-100.0); Mean Corpuscular HGB Conc 26.6 g/dL (31.0-36.0); Monocytes # (Auto) 0.66 K/mcL (0.10-0.90); Monocytes % (Auto) 13.9 % (1.0-12.0); Neutrophils % (Auto) 56.9 % (38.0-78.0); Platelet Count 98 K/mcL (140-440); RBC 4.84 M/mcL (3.59-5.38); Red Cell Distribution Width 18.1 % (11.5-14.5); WBC 4.8 K/mcL (4.5-11.0)
[2023-11-11 07:04] LABS: ALT/SGPT < 5 U/L (<40); AST/SGOT 16 U/L (<32); Albumin/Globulin Ratio 1.2 (1.0-2.3); Alkaline Phosphatase 72 U/L (39-117); Bilirubin,Direct < 0.2 mg/dL (0-0.3); Bilirubin,Total 0.4 mg/dL (0.1-1.0); Blood Urea Nitrogen 49 mg/dL (6-20); Calcium 8.3 mg/dL (8.6-10.4); Carbon Dioxide 35 mmol/L (22-30); Chloride 105 mmol/L (96-108); Globulin 2.5 gm/dL (2.2-3.7); Glomerular Filtration Rate 18; Glucose 110 mg/dL (70-105); Lactate Dehydrogenase 194 U/L (135-225); Phosphorous 4.8 mg/dL (2.5-4.5); Potassium 5.2 mmol/L (3.3-5.1); Sodium 146 mmol/L (133-145); Triglycerides 91 mg/dL (<150); Uric Acid 11.1 mg/dL (2.5-8.0)
[2023-11-11] MEDS: HYDROCHLOROTHIAZIDE 25 MG TABLET PO SCH (10:13)
[2023-11-11] MEDS: ALBUMIN HUMAN 12.5 GM/50 ML VIAL IV SCH (10:14)
[2023-11-11] MEDS: acetaZOLAMIDE SOD 500 MG VIAL IV SCH (18:10)
[2023-11-12 06:34] LABS: Basophils # (Auto) 0.05 K/mcL (0.00-0.30); Eosinophils # (Auto) 0.22 K/mcL (0.00-0.70); Eosinophils % (Auto) 4.5 % (0.0-7.0); Hematocrit 40.1 % (34.1-44.9); Hemoglobin 10.7 g/dL (11.2-15.7); Lymphocytes # (Auto) 0.85 K/mcL (1.50-4.80); Lymphocytes % (Auto) 17.5 % (15.5-49.0); Mean Corpuscular HGB Conc 26.7 g/dL (31.0-36.0); Monocytes # (Auto) 0.49 K/mcL (0.10-0.90); Monocytes % (Auto) 10.1 % (1.0-12.0); Neutrophils % (Auto) 66.7 % (38.0-78.0); Platelet Count 104 K/mcL (140-440); RBC 5.14 M/mcL (3.59-5.38); Red Cell Distribution Width 18.3 % (11.5-14.5); WBC 4.9 K/mcL (4.5-11.0)
[2023-11-12 06:38] LABS: ALT/SGPT < 5 U/L (<40); AST/SGOT 20 U/L (<32); Albumin 3.4 gm/dL (3.2-5.2); Albumin/Globulin Ratio 1.2 (1.0-2.3); Alkaline Phosphatase 78 U/L (39-117); Bilirubin,Direct < 0.2 mg/dL (0-0.3); Bilirubin,Total 0.5 mg/dL (0.1-1.0); Blood Urea Nitrogen 47 mg/dL (6-20); Calcium 8.5 mg/dL (8.6-10.4); Carbon Dioxide 33 mmol/L (22-30); Chloride 102 mmol/L (96-108); Globulin 2.9 gm/dL (2.2-3.7); Glomerular Filtration Rate 18; Glucose 179 mg/dL (70-105); Lactate Dehydrogenase 244 U/L (135-225); Phosphorous 4.7 mg/dL (2.5-4.5); Potassium 5.5 mmol/L (3.3-5.1); Sodium 143 mmol/L (133-145); Triglycerides 96 mg/dL (<150); Uric Acid 10.6 mg/dL (2.5-8.0)
[2023-11-12] MEDS: SODIUM POLYSTYRENE SULFONATE 15 GM/60 ML SUSPENSION PO ONE (09:04)
[2023-11-12] MEDS: LISINOPRIL 5 MG TABLET PO SCH (09:04)
[2023-11-12] MEDS: HYDROCHLOROTHIAZIDE 25 MG TABLET PO ONE (09:07)
[2023-11-12] MEDS: acetaZOLAMIDE SOD 500 MG VIAL IV ONE (11:02)
[2023-11-12] MEDS: acetaZOLAMIDE SOD 500 MG VIAL IV SCH (11:18)
[2023-11-13 06:47] LABS: ALT/SGPT 8 U/L (<40); AST/SGOT 26 U/L (<32); Albumin/Globulin Ratio 1.1 (1.0-2.3); Alkaline Phosphatase 70 U/L (39-117); Bilirubin,Direct < 0.2 mg/dL (0-0.3); Bilirubin,Total 0.4 mg/dL (0.1-1.0); Blood Urea Nitrogen 48 mg/dL (6-20); Calcium 8.3 mg/dL (8.6-10.4); Carbon Dioxide 29 mmol/L (22-30); Chloride 107 mmol/L (96-108); Globulin 2.7 gm/dL (2.2-3.7); Glomerular Filtration Rate 18; Glucose 132 mg/dL (70-105); Lactate Dehydrogenase 302 U/L (135-225); Potassium 5.7 mmol/L (3.3-5.1); Sodium 145 mmol/L (133-145); Triglycerides 129 mg/dL (<150); Uric Acid 10.3 mg/dL (2.5-8.0)
[2023-11-13 06:53] LABS: Basophils # (Auto) 0.04 K/mcL (0.00-0.30); Eosinophils # (Auto) 0.19 K/mcL (0.00-0.70); Eosinophils % (Auto) 4.5 % (0.0-7.0); Hematocrit 36.6 % (34.1-44.9); Hemoglobin 9.7 g/dL (11.2-15.7); Lymphocytes # (Auto) 1.17 K/mcL (1.50-4.80); Mean Cell Volume 78.4 fL (80.0-100.0); Mean Corpuscular HGB Conc 26.5 g/dL (31.0-36.0); Monocytes # (Auto) 0.53 K/mcL (0.10-0.90); Monocytes % (Auto) 12.7 % (1.0-12.0); Neutrophils % (Auto) 53.6 % (38.0-78.0); Platelet Count 90 K/mcL (140-440); RBC 4.67 M/mcL (3.59-5.38); Red Cell Distribution Width 18.1 % (11.5-14.5); WBC 4.2 K/mcL (4.5-11.0)
[2023-11-13] MEDS: METOLAZONE 2.5 MG TABLET PO SCH (08:36)
[2023-11-13] MEDS: ALBUMIN HUMAN 12.5 GM/50 ML VIAL IV SCH (08:37)
[2023-11-13] MEDS: SODIUM POLYSTYRENE SULFONATE 15 GM/60 ML SUSPENSION PO SCH (08:37)
[2023-11-13] MEDS: FUROSEMIDE 100 MG/10 ML VIAL IV SCH (10:34)
[2023-11-13] MEDS: FUROSEMIDE 40 MG/4 ML VIAL IV SCH (17:07)
[2023-11-13 17:21] LABS: Potassium 5.2 mmol/L (3.3-5.1)
[2023-11-13] MEDS: ENALAPRILAT 1.25 MG/ML VIAL IV PRN (18:27)
[2023-11-13] MEDS: cloNIDine HCL 0.1 MG TABLET PO PRN (23:52)
[2023-11-14 07:18] LABS: Basophils # (Auto) 0.05 K/mcL (0.00-0.30); Basophils % (Auto) 1.2 % (0.0-2.0); Eosinophils # (Auto) 0.19 K/mcL (0.00-0.70); Eosinophils % (Auto) 4.7 % (0.0-7.0); Hematocrit 36.1 % (34.1-44.9); Hemoglobin 9.9 g/dL (11.2-15.7); Lymphocytes # (Auto) 1.34 K/mcL (1.50-4.80); Mean Cell Volume 77.3 fL (80.0-100.0); Mean Corpuscular HGB Conc 27.4 g/dL (31.0-36.0); Monocytes % (Auto) 12.3 % (1.0-12.0); Neutrophils % (Auto) 48.6 % (38.0-78.0); Platelet Count 86 K/mcL (140-440); RBC 4.67 M/mcL (3.59-5.38); Red Cell Distribution Width 18.2 % (11.5-14.5); WBC 4.1 K/mcL (4.5-11.0)
[2023-11-14 07:20] LABS: ALT/SGPT 5 U/L (<40); AST/SGOT 21 U/L (<32); Albumin 3.2 gm/dL (3.2-5.2); Albumin/Globulin Ratio 1.2 (1.0-2.3); Alkaline Phosphatase 76 U/L (39-117); Bilirubin,Direct < 0.2 mg/dL (0-0.3); Bilirubin,Total 0.4 mg/dL (0.1-1.0); Blood Urea Nitrogen 48 mg/dL (6-20); Calcium 8.4 mg/dL (8.6-10.4); Carbon Dioxide 32 mmol/L (22-30); Chloride 104 mmol/L (96-108); Globulin 2.6 gm/dL (2.2-3.7); Glomerular Filtration Rate 19; Glucose 174 mg/dL (70-105); Lactate Dehydrogenase 216 U/L (135-225); Phosphorous 4.6 mg/dL (2.5-4.5); Potassium 4.9 mmol/L (3.3-5.1); Sodium 145 mmol/L (133-145); Triglycerides 92 mg/dL (<150); Uric Acid 9.9 mg/dL (2.5-8.0)
[2023-11-14] MEDS: FUROSEMIDE 100 MG/10 ML VIAL IV ONE (08:51)
== END 2023-11-14 13:38 | disposition home or self-care (01) | DRG 291 ==
LOC: ED 15:51 → MEDSUR 22:52
PROVIDERS: ADMIT Internal Medicine; ATTEND Internal Medicine